=== PATIENT | female | born 1980 | race Caucasian/White ===

== ENCOUNTER → 2018-08-18 19:05 | Outpatient (CLI) | payer OTHER, SELFPAY | PROVIDERS: Visit Provider Physician Assistant | DX: N39.0 Urinary tract infection, site not specified (principal); R31.9 Hematuria, unspecified | CPT/HCPCS: 87077; 87086; 87186 ==

== ENCOUNTER → 2020-02-11 16:33 | Outpatient (CLI) | payer OTHER, SELFPAY | PROVIDERS: Visit Provider Physician Assistant | DX: N89.8 Other specified noninflammatory disorders of vagina (principal) | CPT/HCPCS: 87210 ==

== ENCOUNTER 2020-11-23 05:05 | Emergency (ER) | payer OTHER, SELFPAY ==
[2020-11-23 05:09] VITALS: BP 154/95; PULSE 87; RESP 16; TEMP 36.6; O2SAT 98; BMI 32.1
--- NOTE | 2020-11-23 05:18 | DI.US.S_ITS ---
PROCEDURE: US ABDOMEN LIMITED INDICATIONS: ?GALLBLADDER PATHOLOGY TECHNIQUE: Real-time scanning was performed of the abdominal and retroperitoneal organs, with image documentation. COMPARISON: None. FINDINGS: Liver: The liver demonstrates diffusely increased echotexture with a vague hyperechoic focus in the posterior right hepatic lobe near the johnna hepatis measuring approximately 1.9 x 1.8 x 1.0 cm. There is no internal vascularity. No definite posterior acoustic enhancement. Gallbladder: Gallbladder contains multiple mobile gallstones with largest measuring 1.3 x 1.1 cm in size. No gallbladder wall thickening. Negative sonographic Villanueva's. No pericholecystic fluid. Biliary ducts: Intrahepatic bile ducts are non-dilated. Extrahepatic bile duct caliber measures 4 mm. Normal is 6-7 mm or less in diameter, or 10 mm or less post-cholecystectomy. Pancreas: Visualized portions of the pancreas are sonographically normal. Miscellaneous: No free abdominal fluid. IMPRESSION: 1. Cholelithiasis without sonographic evidence for acute cholecystitis. 2. Nonspecific 1.9 x 1.8 x 1.0 cm hyperechoic focus near the johnna hepatis possibly representing focal fatty infiltration versus a hemangioma. Consider further characterization with multiphasic CT or MRI using liver mass protocol. No significant discrepancy with the operations research analyst radiology preliminary report. Dictated by: Rowdy Martinez M.D. on 11/23/2020 at 7:43 Approved by: Rowdy Martinez M.D. on 11/23/2020 at 7:51
--- NOTE | 2020-11-23 05:18 | ED.GENADULT ---
HPI - General Adult General Chief complaint: Abdominal Pain Stated complaint: GALL BLADDER PROBLEM Time Seen by Provider: 11/23/20 05:08 Source: patient Mode of arrival: Ambulatory Limitations: no limitations History of Present Illness HPI narrative: 40-year-old female who is here for evaluation of right upper quadrant abdominal discomfort. She states that several years ago she had an ultrasound and was told she had gallstones. She never had any issues until approximately 2 weeks ago when she started have right upper quadrant abdominal pain. She went to an outside facility. States she had labs performed and also a ?portable ultrasound ?was told that her gallbladder wall was thick and was told that if her symptoms return that she needs to return to the emergency department. She has a referral to see General surgery today. Last evening started to get right upper quadrant abdominal pain again. No fevers. No nausea vomiting. No urinary symptoms. No constipation or diarrhea. Has not tried anything for the symptoms prior to arrival. Related Data Home Medications Medication Instructions Recorded Confirmed cetirizine 10 mg capsule (Zyrtec) 10 mg PO DAILY 08/18/18 08/18/18 cranberry-B.mskrjadpn-Z-Ib phos tab PO tab 08/18/18 08/18/18 480 mg-20 mg-100 million cell tablet (Cranberry-Probiotic) phentermine 37.5 mg capsule 37.5 mg PO DAILY 08/18/18 08/18/18 Allergies Allergy/AdvReac Type Severity Reaction Status Date / Time No Known Drug Allergies Allergy Verified 08/18/18 18:57 Review of Systems Constitutional Constitutional: Denies fever(s) Cardiovascular Cardiovascular: Denies chest pain and Denies dyspnea Respiratory Respiratory: Denies dyspnea Gastrointestinal Gastrointestinal: Reports abdominal pain, Denies change in bowel habits and Denies vomiting Genitourinary Genitourinary: Denies dysuria Musculoskeletal Musculoskeletal: Reports system reviewed and no additional complaints, except as documented Integumentary/Breasts Skin/Breast: Reports system reviewed and no additional complaints, except as documented Neurologic Neurologic: Reports system reviewed and no additional complaints, except as documented Psychiatric Psychiatric: Reports system reviewed and no additional complaints, except as documented Hematologic/Lymphatic On Anticoagulants: No Patient History Medical History Swelling of right knee joint Social History (Reviewed 11/23/20 @ 05:22 by ELIZABETH Nicholson Smoking Status: Never smoker alcohol intake: current Smoking Status: Never smoker alcohol intake frequency: a few times a week Substance Use Type: does not use Exam Initial Vital Signs Initial Vital Signs: Vital Signs Temperature 97.8 F 11/23/20 05:09 Pulse Rate 87 11/23/20 05:09 Respiratory Rate 16 11/23/20 05:09 Blood Pressure 154/95 H 11/23/20 05:09 Pulse Oximetry 98 11/23/20 05:09 HENMT Head: normal to inspection and normocephalic Resp Effort & Inspection: normal respiratory effort Auscultation: clear to auscultation bilaterally Cardio Rate: regular rate Rhythm: regular rhythm GI Inspection: normal to inspection Palpation: soft and tender (Mildly tender right upper quadrant) Skin General: no rashes or lesions noted Neuro General: patient alert, patient awake and moves all extremities Extrem General: normal to inspection and capillary refill normal Psych Appearance: grossly normal and well kempt Course Orders Ordered: ED Orders 11/23/20 05:09 Complete Blood Count AUTO DIFF Stat Comprehensive Metabolic Panel Stat Lipase Stat 11/23/20 05:18 US abdomen limited Stat Vital Signs Vital signs: Vital Signs - 8 hr 11/23/20 05:09 Temperature 97.8 F Pulse Rate 87 Respiratory Rate 16 Blood Pressure 154/95 H Pulse Oximetry 98 Medical Decision Making Lab Data Lab results reviewed: Yes I reviewed the patient's lab results. Result diagrams: 11/23/20 05:20 11/23/20 05:20 Labs: Lab Results 11/23/20 11/23/20 Range/Units 05:20 05:20 WBC 10.0 (4.5-11.0) X10^3/uL RBC 4.74 (4.0-5.2) X10^6/uL Hgb 13.7 (12.0-16.0) g/dL Hct 41.5 (36-46) % MCV 87.6 (80-100) fL MCH 28.9 (26-34) PG MCHC 33.1 (30-36) % RDW 13.4 (11.6-14.8) % Plt Count 260 (150-400) X10^3/uL Neut % (Auto) 68.5 (50-75) % Lymph % (Auto) 21.9 L (25-40) % [place] % (Auto) 7.4 (3-14) % Eos % (Auto) 1.5 L (2-4) % Baso % (Auto) 0.7 (0-2) % Neut # (Auto) 6800 (4660-5464) /uL Lymph # (Auto) 2200 (6092-6599) /uL [place] # (Auto) 700 (0-900) /uL Eos # (Auto) 100 (0-450) /uL Baso # (Auto) 100 (0-100) /uL Sodium 138 (137-145) mmol/L Potassium 3.9 (3.4-5.1) mmol/L Chloride 105 (98-107) mmol/L Carbon Dioxide 26 (22-32) mmol/L BUN 12 (7-17) mg/dL Creatinine 0.62 (0.52-1.04) mg/dL Estimated GFR > 60.0 (>60) mL/min BUN/Creatinine Ratio 19.4 (6-22) Glucose 114 H (70-100) mg/dL Calcium 9.2 (8.4-10.2) mg/dL Total Bilirubin 0.4 (0.2-1.3) mg/dL AST 38 H (14-36) IU/L ALT 30 (<35) IU/L Alkaline Phosphatase 61 (38-126) U/L Total Protein 7.6 (6.3-8.2) g/dL Albumin 4.5 (3.5-5.0) g/dL Globulin 3.1 (1.7-4.1) g/dL Albumin/Globulin Ratio 1.5 (1.0-2.8) Lipase 168 (23-300) U/L Point of Care Testing Test Results Negative Urine Dip Bedside Urine Glucose Negative Bedside Urine Bilirubin - Negative Bedside Urine Ketone - Negative Urine Specific [place] 1.025 Bedside Urine Occult Blood - Negative Bedside Urine pH 6 Bedside Urine Protein - Negative Bedside Urine Urobilinogen - Negative Bedside Urine Nitrite - Negative Bedside Urine Leukocytes - Negative Esterase Point of care testing: Point of Care Testing Test Results Negative Urine Dip Bedside Urine Glucose Negative Bedside Urine Bilirubin - Negative Bedside Urine Ketone - Negative Urine Specific [place] 1.025 Bedside Urine Occult Blood - Negative Bedside Urine pH 6 Bedside Urine Protein - Negative Bedside Urine Urobilinogen - Negative Bedside Urine Nitrite - Negative Bedside Urine Leukocytes - Negative Esterase [facility] Narrative Medical decision making narrative: Patient had minimal abdominal pain with no Villanueva sign. Her LFTs lipase were unremarkable. Ultrasound does show cholelithiasis without signs of cholecystitis. She has a follow-up with General surgery today at a outside facility. Informed her that she should keep this appointment to discuss having her gallbladder removed as a elective procedure. She was given return precautions and follow-up instructions. She expressed understanding and agreement. Discharge Plan Departure Patient Disposition: Home Clinical Impression: Cholelithiasis Instructions: DI for Gallstones Activity Restrictions/Additional Instructions: I recommend that you keep your appointment today with the general surgeons to discuss having her gallbladder removed. I recommend that you eat a low-fat/low oil diet as this may decrease the chance of you having more discomfort in the future. Return to the emergency department for any new or worsening symptoms Prescriptions: No Action phentermine 37.5 mg capsule 37.5 mg PO DAILY RF: 0 Zyrtec 10 mg capsule 10 mg PO DAILY RF: 0 Cranberry-Probiotic 480 mg-20 mg- 100million cell tablet PO RF: 0 Referrals: Miscellaneous,Doctor, [Primary Care Provider] -
[2020-11-23 05:26] LABS: Add Manual Diff / Slide Review NO; Basophils Absolute Auto 100 /uL (0-100); Basophils Percent Auto 0.7 % (0-2); Eosinophils Absolute Auto 100 /uL (0-450); Eosinophils Percent Auto 1.5 % (2-4); Hematocrit 41.5 % (36-46); Hemoglobin 13.7 g/dL (12.0-16.0); Lymphocytes Absolute Auto 2200 /uL (1100-4500); Lymphocytes Percent Auto 21.9 % (25-40); Mean Corpuscular HGB Conc 33.1 % (30-36); Mean Corpuscular Hemoglobin 28.9 PG (26-34); Mean Corpuscular Volume 87.6 fL (80-100); Monocytes Absolute Auto 700 /uL (0-900); Monocytes Percent Auto 7.4 % (3-14); Neutrophils Absolute Auto 6800 /uL (1500-7000); Neutrophils Percent Auto 68.5 % (50-75); Platelet Count 260 X10^3/uL (150-400); Red Blood Cell Count 4.74 X10^6/uL (4.0-5.2); Red Cell Distribution Width 13.4 % (11.6-14.8)
[2020-11-23 05:34] LABS: Alanine Aminotransferase 30 IU/L (<35); Albumin 4.5 g/dL (3.5-5.0); Albumin Globulin Ratio 1.5 (1.0-2.8); Alkaline Phosphatase 61 U/L (38-126); Aspartate Aminotransferase 38 IU/L (14-36); BUN Creatinine Ratio 19.4 (6-22); Bilirubin Total 0.4 mg/dL (0.2-1.3); Blood Urea Nitrogen 12 mg/dL (7-17); Calcium 9.2 mg/dL (8.4-10.2); Carbon Dioxide 26 mmol/L (22-32); Chloride 105 mmol/L (98-107); Estimated Glomerular Filt Rate > 60.0 mL/min (>60); Globulin 3.1 g/dL (1.7-4.1); Glucose 114 mg/dL (70-100); HEMOLYSIS < 15 (0-50); Lipase 168 U/L (23-300); Potassium 3.9 mmol/L (3.4-5.1); Sodium 138 mmol/L (137-145); Total Protein 7.6 g/dL (6.3-8.2)
[2020-11-23 07:00] VITALS: BP 135/85; PULSE 71; RESP 16; O2SAT 97
== END 2020-11-23 07:02 | disposition home or self-care (01) ==
PROVIDERS: Emergency Provider Emergency Medicine
DX: K80.20 Calculus of gallbladder without cholecystitis without obstruction (principal)
CPT/HCPCS: 36415; 76705; 80053; 81003; 81025; 83690; 85025; 99284

== ENCOUNTER → 2021-05-24 14:44 | Outpatient (CLI) | payer OTHER, SELFPAY ==
[2021-05-24 15:38] LABS: Add Manual Diff / Slide Review NO; Basophils Absolute Auto 0 /uL (0-100); Basophils Percent Auto 0.6 % (0-2); Eosinophils Absolute Auto 100 /uL (0-450); Eosinophils Percent Auto 1.7 % (2-4); Hematocrit 37.1 % (36-46); Hemoglobin 12.6 g/dL (12.0-16.0); Lymphocytes Absolute Auto 2000 /uL (1100-4500); Lymphocytes Percent Auto 22.9 % (25-40); Mean Corpuscular HGB Conc 33.8 % (30-36); Mean Corpuscular Hemoglobin 29.2 PG (26-34); Mean Corpuscular Volume 86.4 fL (80-100); Monocytes Absolute Auto 600 /uL (0-900); Monocytes Percent Auto 7.3 % (3-14); Neutrophils Absolute Auto 5800 /uL (1500-7000); Neutrophils Percent Auto 67.5 % (50-75); Platelet Count 347 X10^3/uL (150-400); Red Blood Cell Count 4.29 X10^6/uL (4.0-5.2); Red Cell Distribution Width 13.5 % (11.6-14.8); White Blood Cell Count 8.6 X10^3/uL (4.5-11.0)
[2021-05-24 17:25] LABS: Rubella Antibody IgG 3.6 IU/mL (>15)
[2021-05-24 17:26] LABS: TSH w/ Reflex to FT4 1.99 uIU/mL (0.47-4.68)
[2021-05-25 12:13] LABS: Rubeola Measles IgG 22.1 AU/mL (Immune >16.4); Varicella IgG Antibody 378 index (Immune >165)
[2021-05-26 13:23] LABS: Mumps Virus IgG Antibody 9.1 AU/mL (Immune >10.9)
== END ==
PROVIDERS: Referring Provider Obstetrics & Gynecology; Visit Provider Obstetrics & Gynecology
DX: Z31.69 Encounter for other general counseling and advice on procreation (principal)
CPT/HCPCS: 36415; 84443; 85025; 86735; 86762; 86765; 86787

== ENCOUNTER 2021-07-16 21:39 | Emergency (ER) | payer OTHER, SELFPAY ==
[2021-07-16 21:48] VITALS: BP 125/73; PULSE 89; RESP 15; TEMP 36.6; O2SAT 99; BMI 32.1
--- NOTE | 2021-07-16 22:40 | ED.LOWEXIN ---
HPI - Extremity Injury (Lower) General Chief Complaint: Extremity Injury, Lower Stated Complaint: RIGHT KNEE BLEEDIND SURGERY WED Time Seen by Provider: 07/16/21 22:10 Source: patient Mode of arrival: Ambulatory History of Present Illness HPI Narrative: 41-year-old female who underwent a right knee surgery 2 days ago. Has a drain in place. States that she noticed that the Addison bandage around her knee was starting to become saturated with blood. Because of this she came in for evaluation. Related Data Home Medications Medication Instructions Recorded Confirmed cetirizine 10 mg capsule (Zyrtec) 10 mg PO DAILY 08/18/18 05/24/21 cranberry-B.hwmhysnlq-J-Lo phos tab PO tab 08/18/18 05/24/21 480 mg-20 mg-100 million cell tablet (Cranberry-Probiotic) Allergies Allergy/AdvReac Type Severity Reaction Status Date / Time No Known Drug Allergies Allergy Verified 05/24/21 14:07 Review of Systems Musculoskeletal Comments: Postoperative right knee pain Integumentary/Breasts Comments: Bleeding from the right knee Hematologic/Lymphatic On Anticoagulants: No Patient History Medical History Allergies (~1989) Chicken pox (~1984) Chronic back pain (~1998) Frequent UTI (~2001) Migraines (~2004) Swelling of right knee joint Surgical History Anesthesia History of cholecystectomy (~2020) History of mandibular surgery (~1995) History of tonsillectomy (~1998) Family History Mother Diabetes mellitus Grandfather Cancer Grandfather Cancer Social History Smoking Status: Never smoker alcohol intake: current Smoking Status: Never smoker alcohol intake frequency: a few times a week Substance Use Type: does not use Exam Initial Vital Signs Initial Vital Signs: Vital Signs Temperature 98 F 07/16/21 21:48 Pulse Rate 89 07/16/21 21:48 Respiratory Rate 15 07/16/21 21:48 Blood Pressure 125/73 07/16/21 21:48 Pulse Oximetry 99 07/16/21 21:48 Const General: cooperative, healthy appearing and comfortable Skin Other: The 2 incisions on the anterior inferior portion of the knee appear well. The drain coming from the superior lateral portion of the knee skin appears well Neuro General: patient alert and patient awake Extrem Other: Mild swelling of the right knee consistent with her surgery Course Vital Signs Vital signs: Vital Signs - 8 hr 07/16/21 21:48 07/16/21 22:49 Temperature 98 F Pulse Rate 89 80 Respiratory Rate 15 18 Blood Pressure 125/73 121/75 Pulse Oximetry 99 98 MDM - Extremity Injury (Lower) MDM Narrative Medical decision making narrative: I did remove the surgical dressings in the wound appears well. She does have a drain in place. There does not appear to be any active bleeding from any of the sites. No signs of infection. I did strip in the drain tubing and begin to drain once again. Patient was observed for period of time without any more active bleeding from the site. Clean dressings were replaced over the area she was instructed to continue the postoperative instructions given her by the orthopedic surgeon. No indication for radiologic studies. She was given return precautions. She expressed understanding and agreement. Discharge Plan Departure Patient Disposition: Home Clinical Impression: Post-op bleeding Activity Restrictions/Additional Instructions: I do recommend that you follow all of the postoperative instructions given to you by the orthopedic surgeon. Keep all of your scheduled medical appointments. Contact your primary doctor for a follow-up. Return to the emergency department for any new or worsening symptoms. Prescriptions: No Action Zyrtec 10 mg capsule 10 mg PO DAILY 0RF Cranberry-Probiotic 480 mg-20 mg- 100million cell tablet PO 0RF
--- NOTE | 2021-07-16 22:48 | PC.NURSE ---
pt recently had surger right knee is wrapped without any blood noted on knee at this time
[2021-07-16 22:49] VITALS: BP 121/75; PULSE 80; RESP 18; O2SAT 98
== END 2021-07-16 22:50 | disposition home or self-care (01) ==
PROVIDERS: Emergency Provider Emergency Medicine
DX: M96.831 Postprocedural hemorrhage of a musculoskeletal structure following other procedure (principal)
CPT/HCPCS: 99281

== ENCOUNTER 2021-12-15 14:44 | Inpatient (IN) | payer OTHER, SELFPAY ==
[2021-12-15] VITALS (10 sets, daily range): BP systolic 146–173; BP diastolic 76–92; PULSE 54–78; RESP 18–27; TEMP 36.9–37.1; O2SAT 98–100; BMI 32.1; BMI 31.6
--- NOTE | 2021-12-15 15:44 | DI.CT.S_ITS ---
PROCEDURE: CT KIDNEY URETER BLADDER (KUB) INDICATIONS: RLQ/groin pain with blood in urine TECHNIQUE: Axial sections were acquired from the lung bases to the pubic symphysis. Coronal and sagittal reformats were performed. For radiation dose reduction, the following was used: automated exposure control, adjustment of mA and/or kV according to patient size. COMPARISON: US, US ABDOMEN LIMITED, 11/23/2020, 6:11. FINDINGS: Image quality: Excellent. Lung bases: Unremarkable. Small hiatal hernia. Heart: No significant findings. URINARY: Right Kidney: No stones or hydronephrosis. Right Ureter: No hydroureter. Left Kidney: No stones or hydronephrosis. Left Ureter: No hydroureter. Bladder: Normal wall thickness. No stones. ABDOMEN: Liver: Unremarkable. Gallbladder: Surgically removed. Biliary ducts: Unremarkable. Pancreas: Pancreas is normal in morphology. There is no pancreatic duct dilation. Stranding is seen in the area of pancreatic head. There is a small amount of free fluid in the lesser sac. Spleen: Unremarkable. Adrenal Glands: Unremarkable. Stomach and Bowel: Stomach, small bowel loops, and colon are normal in caliber. There is mild diffuse colonic wall thickening involving cecum, ascending colon, transverse colon and descending, consistent with diffuse colitis. Terminal ileum also appears mildly thickened. Appendix appears normal. Peritoneum: There is a small amount of free fluid in the right pericolic gutter. No free air. Ventral Wall: No hernia. Abdominal Nodes: No enlarged retroperitoneal lymph nodes. Mildly prominent mesenteric lymph nodes are seen in the right lower quadrant. Vessels: Aorta and inferior vena cava are normal in size. PELVIS: Pelvic Organs: There is a 3.4 x 4.5 x 4.0 cm mass adjacent to the left anterior wall of the uterus, most likely a pedunculated subserosal fibroid. No pathological free-fluid in the cul-de-sac. Pelvic Nodes: Unremarkable. Miscellaneous: No inguinal hernias are seen. Bones: Unremarkable. IMPRESSION: 1. No renal stones or hydronephrosis. 2. There is inflammatory stranding around the pancreatic head and the 3rd portion of duodenum area. Differential diagnoses are pancreatitis versus duodenitis. Recommend clinical correlation. 3. There is mild diffuse colonic wall thickening involving the cecum, ascending, transverse and descending colon consistent with colitis. Mild thickening is also noted in terminal ileum. Crohn's disease versus infection. 4. Mildly prominent mesenteric lymph nodes in the right side of abdomen, most likely reactive. 5. Small amount of free fluid is present in the lesser sac and the right pericolic gutter. No free air. 6. Suspect a 3.4 x 4.5 x 4.0 cm pedunculated subserosal fibroid. A differential diagnosis is a left ovarian or paraovarian mass. Recommend nonurgent pelvic ultrasound for follow-up evaluation. The preliminary result was discussed Dr. Hensley Dictated by: Ya Tariq M.D. on 12/15/2021 at 16:09 Approved by: Ya Tariq M.D. on 12/15/2021 at 16:28
[2021-12-15 15:46] LABS: Ictotest Urine Negative (Negative)
[2021-12-15] MEDS: ONDANSETRON 4 MG/2 ML INJ IV (15:48)
[2021-12-15] MEDS: SODIUM CHLORIDE 0.9% 1,000 ML 1000 ML IV (15:48)
[2021-12-15 15:57] LABS: Add Manual Diff / Slide Review NO; Basophils Absolute Auto 0 /uL (0-100); Basophils Percent Auto 0.3 % (0-2); Eosinophils Absolute Auto 0 /uL (0-450); Eosinophils Percent Auto 0.1 % (2-4); Hematocrit 40.4 % (36-46); Hemoglobin 13.6 g/dL (12.0-16.0); Lymphocytes Absolute Auto 800 /uL (1100-4500); Lymphocytes Percent Auto 5.9 % (25-40); Mean Corpuscular HGB Conc 33.8 % (30-36); Mean Corpuscular Hemoglobin 28.4 PG (26-34); Mean Corpuscular Volume 84.1 fL (80-100); Monocytes Absolute Auto 600 /uL (0-900); Monocytes Percent Auto 4.5 % (3-14); Neutrophils Absolute Auto 12700 /uL (1500-7000); Neutrophils Percent Auto 89.2 % (50-75); Platelet Count 340 X10^3/uL (150-400); Red Blood Cell Count 4.81 X10^6/uL (4.0-5.2); Red Cell Distribution Width 13.9 % (11.6-14.8); White Blood Cell Count 14.2 X10^3/uL (4.5-11.0)
[2021-12-15 15:59] LABS: Bacteria Urine Many (>30); Culture Indicated Urine Specimen Cultured; RBC Urine 0-1/HPF (0-5/HPF); Squamous Epithelial Cell Urine 1-5 /HPF (0-5/HPF); WBC Urine 1-5/HPF (0-5/HPF)
[2021-12-15 16:00] LABS: Mucus Urine 1+ (Negative)
[2021-12-15 16:03] LABS: Alanine Aminotransferase 40 IU/L (<35); Albumin 4.6 g/dL (3.5-5.0); Albumin Globulin Ratio 1.4 (1.0-2.8); Alkaline Phosphatase 93 U/L (38-126); Aspartate Aminotransferase 45 IU/L (14-36); BUN Creatinine Ratio 20.3 (6-22); Bilirubin Total 0.6 mg/dL (0.2-1.3); Blood Urea Nitrogen 12 mg/dL (7-17); Calcium 9.1 mg/dL (8.4-10.2); Carbon Dioxide 26 mmol/L (22-32); Chloride 103 mmol/L (98-107); Estimated Glomerular Filt Rate > 60 mL/min (>60); Globulin 3.3 g/dL (1.7-4.1); Glucose 150 mg/dL (70-100); HEMOLYSIS < 15 (0-50); Potassium 3.9 mmol/L (3.4-5.1); Sodium 138 mmol/L (137-145); Total Protein 7.9 g/dL (6.3-8.2)
[2021-12-15 17:51] LABS: Lipase 5197 U/L (23-300)
--- NOTE | 2021-12-15 18:53 | ED_ITS ---
HPI - Abdominal Pain General Chief Complaint: Abdominal Pain Stated Complaint: ABD. PAIN Time Seen by Provider: 12/15/21 18:27 Source: patient Mode of arrival: Ambulatory History of Present Illness HPI narrative: Patient here with . Complaints of epigastric abdominal pain radiating to her back that started today. Three episodes of nonbloody emesis. Nonbilious. Patient has history of cholecystectomy. Patient admits drinking 1 bottle of wine every other day. Patient had EGD and colonoscopy 2 Mondays ago at [facility]. This was for the purpose of biopsy regarding her arthritis. No urinary complaints. No seizures. No altered mental status. Related Data Home Medications Medication Instructions Recorded Confirmed cetirizine 10 mg capsule (Zyrtec) 10 mg PO DAILY 08/18/18 12/15/21 pantoprazole 40 mg tablet,delayed 40 mg PO DAILY 12/15/21 12/15/21 release Allergies Allergy/AdvReac Type Severity Reaction Status Date / Time No Known Drug Allergies Allergy Verified 12/15/21 15:06 Review of Systems Review of Systems Narrative: GENERAL: Denies chills, fatigue, malaise, fever, sweats. HEENT: Denies sinus pain, ear pain, sore throat RESPIRATORY: Denies dyspnea, cough CARDIOVASCULAR: Denies chest pain, palpitations GASTROINTESTINAL: Positive nausea, vomiting, abdominal pain : Denies dysuria, frequency, hematuria MUSCULOSKELETAL: denies muscle or bony pain SKIN: Denies rash, skin lesions NEUROLOGIC: Denies weakness, numbness ROS Unobtainable: All systems reviewed & are unremarkable except as noted in HPI and below Patient History Medical History Allergies (~1989) Chicken pox (~1984) Chronic back pain (~1998) Frequent UTI (~2001) Migraines (~2004) Swelling of right knee joint Surgical History Anesthesia History of cholecystectomy (~2020) History of mandibular surgery (~1995) History of tonsillectomy (~1998) Family History Mother Diabetes mellitus Grandfather Cancer Grandfather Cancer Social History household members: significant other and friend(s) Smoking Status: Never smoker alcohol intake: current Smoking Status: Never smoker alcohol intake frequency: a few times a week Substance Use Type: does not use Exam Narrative Exam Narrative: GENERAL: in no distress, not toxic not dyspneic HEAD: Normocephalic. EYES: Pupils equal round No scleral icterus. ENT: Mucous membranes moist. NECK: Trachea midline. CARDIOVASCULAR: Regular rate and rhythm without murmurs RESPIRATORY: Clear to auscultation. Breath sounds equal bilaterally. No wheezes, rales, or rhonchi. GASTROINTESTINAL: Abdomen soft, no peritoneal signs, diffuse tenderness but prominently epigastric. Bowel sounds are present. EXTREMITIES: No gross deformities. NEURO: AOx4. SKIN: Warm and dry PSYCH: Not anxious, is cooperative Initial Vital Signs Initial Vital Signs: Vital Signs Temperature 98.8 F 12/15/21 15:02 Pulse Rate 69 12/15/21 15:02 Respiratory Rate 18 12/15/21 15:02 Blood Pressure 173/76 H 12/15/21 15:02 Pulse Oximetry 100 12/15/21 15:02 Oxygen Delivery Method 12/15/21 15:02 Course Course Course Narrative: No new issues during course of stay Decision to Admit Date: 12/15/21 Decision to Admit time: 18:57 Orders Ordered: ED Orders 12/15/21 15:31 Ictotest Urine Stat 12/15/21 15:40 Amylase Urgent Complete Blood Count AUTO DIFF Stat Comprehensive Metabolic Panel Stat Lactate Dehydrogenase Urgent Lipase Stat Prothrombin Time INR Urgent 12/15/21 15:44 CT kidney ureter bladder (KUB) Stat 12/15/21 19:51 Consult to Dietitian, Adult Routine 12/15/21 19:54 COVID19 -Nasal RAPID/Pre-Proc Stat 12/15/21 19:56 Education, smoking cessation ONGOING 12/16/21 05:00 Basic Metabolic Panel Routine Complete Blood Count AUTO DIFF Routine Lipid Panel Routine Acetaminophen (Acetaminophen 325 Mg Tablet) 650 mg PO Q6HR PRN PRN Reason: Fever/Mild Pain (1-3) Last Admin: 12/15/21 23:44 Dose: 650 mg Documented By: CN Enoxaparin Sodium (Enoxaparin 40 Mg/0.4 Ml Syringe) 40 mg SUBCUT DAILY LIZ Folic Acid (Folic Acid 1 Mg Tablet) 1 mg PO DAILY LIZ Hydromorphone HCl (Hydromorphone 1 Mg Inj) 1 mg IV Q3H PRN PRN Reason: Pain, Moderate (4-6) Lactated Ringer's (Lactated Ringers) 1,000 mls @ 150 mls/hr IV CONT LIZ Last Admin: 12/15/21 23:37 Dose: 150 mls/hr Documented By: CN Multivitamins (Multivitamin 1 Tablet) 1 tab PO DAILY LIZ Ondansetron HCl (Ondansetron 4 Mg/2 Ml Inj) 4 mg IV Q4HR [facility] Last Admin: 12/15/21 21:46 Dose: Not Given Documented By: CN Pantoprazole Sodium (Pantoprazole Dr 20 Mg Tablet) 20 mg PO 0600 LIZ Thiamine HCl (Thiamine 100 Mg Tablet) 100 mg PO DAILY [facility] Stop: 12/19/21 09:01 Tramadol HCl (Tramadol 50 Mg Tablet) 50 mg PO Q4H PRN PRN Reason: Pain, Moderate (4-6) Last Admin: 12/15/21 21:47 Dose: 50 mg Documented By: CN Discontinued Medications Al Hydrox/Mg Hydrox/Simethicone 20 ml/ Lidocaine HCl 15 ml 0 ml PO NOW ONE Stop: 12/15/21 20:08 Last Admin: 12/15/21 23:36 Dose: Not Given Documented By: EVON Sodium Chloride (Normal Saline 0.9%) 1,000 mls @ 1,000 mls/hr IV BOLUS ONE Stop: 12/15/21 16:44 Last Infusion: 12/15/21 18:45 Dose: 0 mls/hr Documented By: Admin: 12/15/21 15:48 Dose: 1,000 mls/hr Documented By: AMU Morphine Sulfate (Morphine 4 Mg/Ml Inj) 4 mg IV NOW ONE Stop: 12/15/21 18:53 Last Admin: 12/15/21 19:54 Dose: 4 mg Documented By: AP Ondansetron HCl (Ondansetron 4 Mg/2 Ml Inj) 4 mg IV NOW ONE Stop: 12/15/21 15:46 Last Admin: 12/15/21 15:48 Dose: 4 mg Documented By: AMU Reevaluation(s) Reevaluation #1: Reviewed results with patient. And . Agree for admit. Pain controlled at this time. Time: 18:57 Consultations Consultation #1: s/w hospitalist, Brit Ruiz, will admit Time: 19:48 Vital Signs Vital signs: Vital Signs - 8 hr 12/15/21 16:49 12/15/21 16:51 12/15/21 16:51 Pulse Rate 54 L 60 Respiratory Rate 20 Blood Pressure 151/76 H Pulse Oximetry 100 12/15/21 17:00 12/15/21 17:30 12/15/21 18:00 Pulse Rate 57 L 59 L 58 L Respiratory Rate 23 25 H 24 Blood Pressure Pulse Oximetry 100 100 100 12/15/21 18:30 12/15/21 19:00 12/15/21 19:30 Pulse Rate 67 74 75 Respiratory Rate 22 27 H 23 Blood Pressure Pulse Oximetry 99 99 98 MDM - Abdominal Pain Differential Diagnosis Differential diagnosis: Likely abdominal pain, acute appendicitis, diverticulitis, pancreatitis and small bowel obstruction Lab Data Result diagrams: 12/15/21 15:40 12/15/21 15:40 Labs: Lab Results 12/15/21 12/15/21 12/15/21 Range/Units 15:20 15:21 15:31 WBC (4.5-11.0) X10^3/uL RBC (4.0-5.2) X10^6/uL Hgb (12.0-16.0) g/dL Hct (36-46) % MCV (80-100) fL MCH (26-34) PG MCHC (30-36) % RDW (11.6-14.8) % Plt Count (150-400) X10^3/uL Neut % (Auto) (50-75) % Lymph % (Auto) (25-40) % [place] % (Auto) (3-14) % Eos % (Auto) (2-4) % Baso % (Auto) (0-2) % Neut # (Auto) (3472-9079) /uL Lymph # (Auto) (0730-5454) /uL [place] # (Auto) (0-900) /uL Eos # (Auto) (0-450) /uL Baso # (Auto) (0-100) /uL PT (10.1-12.7) SECONDS INR (0.9-1.3) Sodium (137-145) mmol/L Potassium (3.4-5.1) mmol/L Chloride (98-107) mmol/L Carbon Dioxide (22-32) mmol/L BUN (7-17) mg/dL Creatinine (0.52-1.04) mg/dL Estimated GFR (>60) mL/min BUN/Creatinine Ratio (6-22) Glucose (70-100) mg/dL Hemoglobin A1c (4.0-6.0) % Calcium (8.4-10.2) mg/dL Total Bilirubin (0.2-1.3) mg/dL AST (14-36) IU/L ALT (<35) IU/L Alkaline Phosphatase (38-126) U/L Lactate Dehydrogenase (313-618) U/L NT-Pro-B Natriuret Pep (<125) pg/mL Total Protein (6.3-8.2) g/dL Albumin (3.5-5.0) g/dL Globulin (1.7-4.1) g/dL Albumin/Globulin Ratio (1.0-2.8) Amylase (30-110) U/L Lipase (23-300) U/L Ur Bilirubin Confirm Negative (Negative) Urine RBC 0-1/hpf (0-5/HPF) Urine WBC 1-5/hpf (0-5/HPF) Ur Squamous Epith Cells 1-5 /hpf (0-5/HPF) Urine Bacteria Many (>30) H (None) Urine Mucus 1+ H (Negative) Ur Culture Indicated? Specimen cultured Ethyl Alcohol < 10 ( - 10) mg/dL SARS-CoV-2 (PCR) (Negative) 12/15/21 12/15/21 12/15/21 Range/Units 15:40 15:40 15:40 WBC 14.2 H (4.5-11.0) X10^3/uL RBC 4.81 (4.0-5.2) X10^6/uL Hgb 13.6 (12.0-16.0) g/dL Hct 40.4 (36-46) % MCV 84.1 (80-100) fL MCH 28.4 (26-34) PG MCHC 33.8 (30-36) % RDW 13.9 (11.6-14.8) % Plt Count 340 (150-400) X10^3/uL Neut % (Auto) 89.2 H (50-75) % Lymph % (Auto) 5.9 L (25-40) % [place] % (Auto) 4.5 (3-14) % Eos % (Auto) 0.1 L (2-4) % Baso % (Auto) 0.3 (0-2) % Neut # (Auto) 66394 H (2480-4709) /uL Lymph # (Auto) 800 L (3907-5337) /uL [place] # (Auto) 600 (0-900) /uL Eos # (Auto) 0 (0-450) /uL Baso # (Auto) 0 (0-100) /uL PT (10.1-12.7) SECONDS INR (0.9-1.3) Sodium 138 (137-145) mmol/L Potassium 3.9 (3.4-5.1) mmol/L Chloride 103 (98-107) mmol/L Carbon Dioxide 26 (22-32) mmol/L BUN 12 (7-17) mg/dL Creatinine 0.59 (0.52-1.04) mg/dL Estimated GFR > 60 (>60) mL/min BUN/Creatinine Ratio 20.3 (6-22) Glucose 150 H (70-100) mg/dL Hemoglobin A1c (4.0-6.0) % Calcium 9.1 (8.4-10.2) mg/dL Total Bilirubin 0.6 (0.2-1.3) mg/dL AST 45 H (14-36) IU/L ALT 40 H (<35) IU/L Alkaline Phosphatase 93 (38-126) U/L Lactate Dehydrogenase 677 H (313-618) U/L NT-Pro-B Natriuret Pep (<125) pg/mL Total Protein 7.9 (6.3-8.2) g/dL Albumin 4.6 (3.5-5.0) g/dL Globulin 3.3 (1.7-4.1) g/dL Albumin/Globulin Ratio 1.4 (1.0-2.8) Amylase 545 H (30-110) U/L Lipase 5197 H (23-300) U/L Ur Bilirubin Confirm (Negative) Urine RBC (0-5/HPF) Urine WBC (0-5/HPF) Ur Squamous Epith Cells (0-5/HPF) Urine Bacteria (None) Urine Mucus (Negative) Ur Culture Indicated? Ethyl Alcohol ( - 10) mg/dL SARS-CoV-2 (PCR) (Negative) 12/15/21 12/15/21 12/15/21 Range/Units 15:40 15:40 15:50 WBC (4.5-11.0) X10^3/uL RBC (4.0-5.2) X10^6/uL Hgb (12.0-16.0) g/dL Hct (36-46) % MCV (80-100) fL MCH (26-34) PG MCHC (30-36) % RDW (11.6-14.8) % Plt Count (150-400) X10^3/uL Neut % (Auto) (50-75) % Lymph % (Auto) (25-40) % [place] % (Auto) (3-14) % Eos % (Auto) (2-4) % Baso % (Auto) (0-2) % Neut # (Auto) (6128-9880) /uL Lymph # (Auto) (6850-0692) /uL [place] # (Auto) (0-900) /uL Eos # (Auto) (0-450) /uL Baso # (Auto) (0-100) /uL PT 12.3 (10.1-12.7) SECONDS INR 1.1 (0.9-1.3) Sodium (137-145) mmol/L Potassium (3.4-5.1) mmol/L Chloride (98-107) mmol/L Carbon Dioxide (22-32) mmol/L BUN (7-17) mg/dL Creatinine (0.52-1.04) mg/dL Estimated GFR (>60) mL/min BUN/Creatinine Ratio (6-22) Glucose (70-100) mg/dL Hemoglobin A1c 5.3 (4.0-6.0) % Calcium (8.4-10.2) mg/dL Total Bilirubin (0.2-1.3) mg/dL AST (14-36) IU/L ALT (<35) IU/L Alkaline Phosphatase (38-126) U/L Lactate Dehydrogenase (313-618) U/L NT-Pro-B Natriuret Pep 27 (<125) pg/mL Total Protein (6.3-8.2) g/dL Albumin (3.5-5.0) g/dL Globulin (1.7-4.1) g/dL Albumin/Globulin Ratio (1.0-2.8) Amylase (30-110) U/L Lipase (23-300) U/L Ur Bilirubin Confirm (Negative) Urine RBC (0-5/HPF) Urine WBC (0-5/HPF) Ur Squamous Epith Cells (0-5/HPF) Urine Bacteria (None) Urine Mucus (Negative) Ur Culture Indicated? Ethyl Alcohol ( - 10) mg/dL SARS-CoV-2 (PCR) (Negative) 12/15/21 Range/Units 19:54 WBC (4.5-11.0) X10^3/uL RBC (4.0-5.2) X10^6/uL Hgb (12.0-16.0) g/dL Hct (36-46) % MCV (80-100) fL MCH (26-34) PG MCHC (30-36) % RDW (11.6-14.8) % Plt Count (150-400) X10^3/uL Neut % (Auto) (50-75) % Lymph % (Auto) (25-40) % [place] % (Auto) (3-14) % Eos % (Auto) (2-4) % Baso % (Auto) (0-2) % Neut # (Auto) (1667-4303) /uL Lymph # (Auto) (6010-6886) /uL [place] # (Auto) (0-900) /uL Eos # (Auto) (0-450) /uL Baso # (Auto) (0-100) /uL PT (10.1-12.7) SECONDS INR (0.9-1.3) Sodium (137-145) mmol/L Potassium (3.4-5.1) mmol/L Chloride (98-107) mmol/L Carbon Dioxide (22-32) mmol/L BUN (7-17) mg/dL Creatinine (0.52-1.04) mg/dL Estimated GFR (>60) mL/min BUN/Creatinine Ratio (6-22) Glucose (70-100) mg/dL Hemoglobin A1c (4.0-6.0) % Calcium (8.4-10.2) mg/dL Total Bilirubin (0.2-1.3) mg/dL AST (14-36) IU/L ALT (<35) IU/L Alkaline Phosphatase (38-126) U/L Lactate Dehydrogenase (313-618) U/L NT-Pro-B Natriuret Pep (<125) pg/mL Total Protein (6.3-8.2) g/dL Albumin (3.5-5.0) g/dL Globulin (1.7-4.1) g/dL Albumin/Globulin Ratio (1.0-2.8) Amylase (30-110) U/L Lipase (23-300) U/L Ur Bilirubin Confirm (Negative) Urine RBC (0-5/HPF) Urine WBC (0-5/HPF) Ur Squamous Epith Cells (0-5/HPF) Urine Bacteria (None) Urine Mucus (Negative) Ur Culture Indicated? Ethyl Alcohol ( - 10) mg/dL SARS-CoV-2 (PCR) Negative (Negative) Point of care testing: Point of Care Testing Test Results Negative Urine Dip Bedside Urine Glucose Negative Bedside Urine Bilirubin + 1 Bedside Urine Ketone +/- 5 Urine Specific [place] 1.030 Bedside Urine Occult Blood +++ Bedside Urine pH 6 Bedside Urine Protein + 30 Bedside Urine Urobilinogen - Negative Bedside Urine Nitrite - Negative Bedside Urine Leukocytes - Negative Esterase Imaging Data CT scan - abdomen/pelvis: Radiologist's Impression: [place] [address] CT Scan Report Signed Patient: Gail Corcoran MR#: [id number] : 1980 Acct:[id number] Age/Sex: 41 / F Date of Service: 12/15/21 Loc: ED Accession Number: [id number] ?? Procedure: CT kidney ureter bladder (KUB) Ordering Provider: Marisela Hensley D.O. PROCEDURE:? CT KIDNEY URETER BLADDER (KUB) ? INDICATIONS:? RLQ/groin pain with blood in urine ? TECHNIQUE:? Axial sections were acquired from the lung bases to the pubic symphysis.? Coronal and sagittal reformats were performed.? For radiation dose reduction, the following was used: ?automated exposure control, adjustment of mA and/or kV according to patient size.? ? COMPARISON:? US, US ABDOMEN LIMITED, 11/23/2020, 6:11. ? FINDINGS:? Image quality:? Excellent.? ? Lung bases:? Unremarkable.? Small hiatal hernia.? ? Heart:? No significant findings. ? URINARY: Right Kidney: ? No stones or hydronephrosis.? Right Ureter:? No hydroureter.? ? Left Kidney: ? No stones or hydronephrosis. Left Ureter:? No hydroureter.? ? Bladder:? Normal wall thickness. No stones. ? ? ? ABDOMEN: Liver:? Unremarkable.? ? Gallbladder:? Surgically removed.? ? Biliary ducts:? Unremarkable.? ? Pancreas:? Pancreas is normal in morphology.? There is no pancreatic duct dilation.? Stranding is seen in the area of pancreatic head. ? There is a small amount of free fluid in the lesser sac.? Spleen:? Unremarkable.? ? Adrenal Glands:? Unremarkable.? ? ? Stomach and Bowel:? Stomach, small bowel loops, and colon are normal in caliber.? There is mild diffuse colonic wall thickening involving cecum, ascending colon, tr ansverse colon and descending, consistent with diffuse colitis.? Terminal ileum also appears mildly thickened.? Appendix appears normal. Peritoneum:? There is a small amount of free fluid in the right pericolic gutter.? No free air.? ? Ventral Wall: ? No hernia.? Abdominal Nodes:? No enlarged retroperitoneal lymph nodes.? Mildly prominent mesenteric lymph nodes are seen in the right lower quadrant. Vessels:? Aorta and inferior vena cava are normal in size.? ? PELVIS: Pelvic Organs:? There is a 3.4 x 4.5 x 4.0 cm mass adjacent to the left anterior wall of the uterus, most likely a pedunculated subserosal fibroid.? No pathological free-fluid in the cul-de-sac.? ? Pelvic Nodes: Unremarkable. Miscellaneous: No inguinal hernias are seen. ? ? ? Bones:? Unremarkable. ? IMPRESSION:? ? 1. No renal stones or hydronephrosis. 2. There is inflammatory stranding around the pancreatic head and the 3rd portion of duodenum area.? Differential diagnoses are pancreatitis versus duodenitis.? Recommend clinical correlation. 3. There is mild diffuse colonic wall thickening involving the cecum, ascending, transverse and descending colon consistent with colitis.? Mild thickening is also noted in terminal ileum.? Crohn's disease versus infection. 4. Mildly prominent mesenteric lymph nodes in the right side of abdomen, most likely reactive. 5. Small amount of free fluid is present in the lesser sac and the right pericolic gutter.? No free air. 6.? Suspect a 3.4 x 4.5 x 4.0? cm pedunculated subserosal fibroid.? A differential diagnosis is a left ovarian or paraovarian mass.? Recommend nonurgent pelvic ultrasound for follow-up evaluation.? ? The preliminary result was discussed Dr. Hensley ? ? ? Dictated by: Ya Tariq M.D. on 12/15/2021 at 16:09 ? ? Approved by: Ya Tariq M.D. on 12/15/2021 at 16:28 ? MDM Narrative Medical decision making narrative: Appropriate for admission. No signs of alcohol withdrawal. Appropriate for pain control and IV fluids. Patient and agree for admit. Discharge Plan Departure Patient Disposition: Admitted as Observation Clinical Impression: Pancreatitis Admit Date/Time: 12/15/21 20:00 Admit Provider: Brit Ruiz
[2021-12-15 19:05] LABS: Ethanol (ETOH) < 10 mg/dL
[2021-12-15] MEDS: MORPHINE 4 MG/ML INJ IV (19:54)
[2021-12-15 20:17] LABS: INR 1.1 (0.9-1.3); Prothrombin Time 12.3 SECONDS (10.1-12.7)
[2021-12-15 20:21] LABS: Amylase 545 U/L (30-110); Lactate Dehydrogenase 677 U/L (313-618)
[2021-12-15 20:24] LABS: Hemoglobin A1C% w Est Avg Glu 5.3 % (4.0-6.0)
[2021-12-15 20:30] LABS: NT-proBNP (BNP-Adult 18+) 27 pg/mL (<125)
[2021-12-15 20:51] LABS: COVID19 -Nasal RAPID Negative (Negative)
[2021-12-15] MEDS: TRAMADOL 50 MG TABLET PO (21:47)
[2021-12-15] MEDS: LACTATED RINGERS 1,000 ML 150 ML IV (23:37)
[2021-12-15] MEDS: ACETAMINOPHEN 325 MG TABLET 650 MG PO (23:44)
[2021-12-16] VITALS (9 sets, daily range): BP systolic 129–155; BP diastolic 77–88; PULSE 85–103; RESP 17–18; TEMP 36.7–37.4; O2SAT 95–100
--- NOTE | 2021-12-16 00:18 | P.HP_ITS ---
History of Present Illness History of Present Illness Date Patient Seen: 12/15/21 Time Patient Seen: 20:00 Chief complaint: ABD. PAIN Narrative: Gail Corcoran is a 41-year-old female with a medical history cholecystectomy, erosive reflux esophagitis, mild erosive gastritis, rectal polyps (found on EGD/COLON), GERD, and alcohol abuse who presented to the ED complaining diffuse epigastric abdominal pain radiating to her back, worsens with eating or movement, describes it as sharp dull achy throbbing tearing pressure squeezing type pain, that started today was 8/10 but is now 6/10 after morphine. Patient reports that she drinks approximately a bottle of wine every other day x 10 years.? Three episodes of nonbloody emesis, Nonbilious, denies hematuria, notes that her stools are chronically omar colored, denies chest pain, shortness of breath, fever, body aches, chills, upper respiratory symptoms, urinary symptoms, altered mental status, seizures, falls, recent illness, injury, or trauma. Patient had EGD and colonoscopy at [facility] that the patient reports was not related to this issue or GI concerns but for the purpose of biopsy regarding her arthritis.? Patient's spouse is at bedside to endorse history. Patient has no other dominant medical history, was prescribed only Protonix following her EGD/colonoscopy. They also found a large rectal polyp and patient is in the process of being referred to [facility] for resection. Patient is resting comfortably in bed is in no distress, tolerates physical exam with minimal discomfort. Upon admit patient is afebrile temp 98.8?, elevated blood pressure without the diagnosis of hypertension BP 173/76, 151/76, HR 60, R 20, O2 saturation 100% on room air. Patient has only a minimally elevated white count 14.2 with 80 small left shift neutrophils 12,700. Rest of her hematology and renal labs are within normal limits with the exception of a glucose of 150, lipase 5197, AST 45, ALT 40, urine had many bacteria and sent for culture. Patient's alcohol level was negative. Patient's abdomen pelvis CT demonstrated no renal stones or hydronephrosis. There is inflammatory stranding around the pancreatic head and the 3rd portion of duodenum area and mild diffuse colonic wall thickening involving the cecum, ascending, transverse and descending colon consistent with colitis, mild thickening in terminal ileum.?Mildly prominent mesenteric lymph nodes in the right side of abdomen, most likely reactive, and a small amount of free fluid is present in the lesser sac and the right pericolic gutter, but no free air. and there is a suspected 3.4 x 4.5 x 4.0? cm pedunculated subserosal fibroid.??nonurgent pelvic ultrasound recommended. Requested EGD/Colon results from [facility] 12/01/21- they reported computer issues and unable to supply them at this time. Will attempt 2nd request from coordinator on the floor. Was able to briefly put eyes on EGD/COLON report down in the ED on Dr. Cm phone-which noted no Barretts esophagus, no blood, LA grade D distal erosive reflux esophagitis, stomach mild erosive gastritis and referral to [facility] for resection of large rectal polyp believed to be non malignant. Patient admitted for mild acute alcoholic pancreatitis with elevated blood pressure without the diagnosis of hypertension, and gastritis due to alcohol without hemorrhage. ? Patient History Medical History (Updated 12/16/21 @ 00:51 by ESMER Truong-) Alcohol abuse Allergies (~1989) Chicken pox (~1984) Chronic back pain (~1998) Frequent UTI (~2001) Migraines (~2004) Swelling of right knee joint Surgical History Anesthesia History of cholecystectomy (~2020) History of mandibular surgery (~1995) History of tonsillectomy (~1998) Family & Social History Family History Mother Diabetes mellitus Grandfather Cancer Grandfather Cancer Social History: household members significant other,friend(s) Prior Living Arrangements House Safety & Behavioral: Feels Safe in Current Yes Environment Tobacco & Substance use: Smoking Status Never smoker alcohol intake current alcohol intake frequency a few times a week Substance Use Type does not use Meds Home Medications and Allergies Home Medications Medication Instructions Recorded Confirmed Type cetirizine 10 mg capsule (Zyrtec) 10 mg PO DAILY 08/18/18 12/15/21 History pantoprazole 40 mg tablet,delayed 40 mg PO DAILY 12/15/21 12/15/21 History release Allergies Allergy/AdvReac Type Severity Reaction Status Date / Time No Known Drug Allergies Allergy Verified 12/15/21 15:06 Review of Systems Review of Systems Narrative: All 12 point systems reviewed with the patient and are negative except otherwise documented. Exam Vital Signs (past 8 hours): - 12/15/21 16:49 12/15/21 16:51 12/15/21 16:51 Temperature Pulse Rate 54 L 60 Respiratory Rate 20 Blood Pressure 151/76 H Pulse Oximetry 100 Oxygen Flow Rate 12/15/21 17:00 12/15/21 17:30 12/15/21 18:00 Temperature Pulse Rate 57 L 59 L 58 L Respiratory Rate 23 25 H 24 Blood Pressure Pulse Oximetry 100 100 100 Oxygen Flow Rate 12/15/21 18:30 12/15/21 19:00 12/15/21 19:30 Temperature Pulse Rate 67 74 75 Respiratory Rate 22 27 H 23 Blood Pressure Pulse Oximetry 99 99 98 Oxygen Flow Rate 12/15/21 21:30 Temperature 98.5 F Pulse Rate 78 Respiratory Rate 18 Blood Pressure 146/92 H Pulse Oximetry 100 Oxygen Flow Rate 0 Oxygen Delivery Method Room Air Oxygen Flow Rate 0 Narrative Exam Narrative: General: Patient is a well-developed, well-nourished female in mild discomfort, but in no distress at this time. HEENT: Normocephalic, atraumatic, extraocular muscles intact, no scleral icterus oral pharynx is clear and mucous membranes are moist. Neck is supple and symmetric, trachea is midline, no adenopathy, no thyroid enlargement, nontender, no masses palpated. Negative for JVD Chest: Normal AP diameter and contour without kyphoscoliosis, no nasal flaring, retractions, or tachypneic labored breathing. Lungs: Auscultation of all lung saenz are clear without adventitious sounds, wheezes, rhonchi, or rales. Cardio: S1 & S2 with regular rate and rhythm without murmur, rubs, or gallops, no carotid bruit, no cardiac pulsations present. Abdomen: Soft mild diffuse tenderness, greatest in the epigastric, without distension negative for organomegaly, or masses. Bowel sounds are normal active present in all 4 quadrants without guarding or rebound, no CVA tenderness. Musculoskeletal: Muscle strength and tone are equal within normal limits, no deformity, crepitus, effusions, cyanosis, clubbing or edema present. Full range of motion intact radial and pedal pulses are normal. Skin: Warm dry and intact without rashes, ulcerations or petechiae. No icterus, negative for [place] Sign, Wilson sign, panniculitis, xanthomas, or parotitis Neuro: Alert and orientated x3, strength is +5/5 in all extremities, sensation to touch intact, no gross deficits noted of cranial nerves. Psych: Patient has a well-kept appearance, appropriate affect, mental status attitude thought context and judgment are appropriate for age. Objective Labs Result Diagrams: 12/15/21 15:40 12/15/21 15:40 Labs: Laboratory Results - last 24 hr 12/15/21 12/15/21 12/15/21 15:20 15:21 15:31 WBC RBC Hgb Hct MCV MCH MCHC RDW Plt Count Neut % (Auto) Lymph % (Auto) Sherman % (Auto) Eos % (Auto) Baso % (Auto) Neut # (Auto) Lymph # (Auto) Sherman # (Auto) Eos # (Auto) Baso # (Auto) PT INR Sodium Potassium Chloride Carbon Dioxide BUN Creatinine Estimated GFR BUN/Creatinine Ratio Glucose Hemoglobin A1c Calcium Total Bilirubin AST ALT Alkaline Phosphatase Lactate Dehydrogenase NT-Pro-B Natriuret Pep Total Protein Albumin Globulin Albumin/Globulin Ratio Amylase Lipase Ur Bilirubin Confirm Negative Urine RBC 0-1/hpf Urine WBC 1-5/hpf Ur Squamous Epith Cells 1-5 /hpf Urine Bacteria Many (>30) H Urine Mucus 1+ H Ur Culture Indicated? Specimen cultured Ethyl Alcohol < 10 SARS-CoV-2 (PCR) 12/15/21 12/15/21 12/15/21 15:40 15:40 15:40 WBC 14.2 H RBC 4.81 Hgb 13.6 Hct 40.4 MCV 84.1 MCH 28.4 MCHC 33.8 RDW 13.9 Plt Count 340 Neut % (Auto) 89.2 H Lymph % (Auto) 5.9 L Sherman % (Auto) 4.5 Eos % (Auto) 0.1 L Baso % (Auto) 0.3 Neut # (Auto) 98182 H Lymph # (Auto) 800 L Sherman # (Auto) 600 Eos # (Auto) 0 Baso # (Auto) 0 PT INR Sodium 138 Potassium 3.9 Chloride 103 Carbon Dioxide 26 BUN 12 Creatinine 0.59 Estimated GFR > 60 BUN/Creatinine Ratio 20.3 Glucose 150 H Hemoglobin A1c Calcium 9.1 Total Bilirubin 0.6 AST 45 H ALT 40 H Alkaline Phosphatase 93 Lactate Dehydrogenase 677 H NT-Pro-B Natriuret Pep Total Protein 7.9 Albumin 4.6 Globulin 3.3 Albumin/Globulin Ratio 1.4 Amylase 545 H Lipase 5197 H Ur Bilirubin Confirm Urine RBC Urine WBC Ur Squamous Epith Cells Urine Bacteria Urine Mucus Ur Culture Indicated? Ethyl Alcohol SARS-CoV-2 (PCR) 12/15/21 12/15/21 12/15/21 15:40 15:40 15:50 WBC RBC Hgb Hct MCV MCH MCHC RDW Plt Count Neut % (Auto) Lymph % (Auto) Sherman % (Auto) Eos % (Auto) Baso % (Auto) Neut # (Auto) Lymph # (Auto) Sherman # (Auto) Eos # (Auto) Baso # (Auto) PT 12.3 INR 1.1 Sodium Potassium Chloride Carbon Dioxide BUN Creatinine Estimated GFR BUN/Creatinine Ratio Glucose Hemoglobin A1c 5.3 Calcium Total Bilirubin AST ALT Alkaline Phosphatase Lactate Dehydrogenase NT-Pro-B Natriuret Pep 27 Total Protein Albumin Globulin Albumin/Globulin Ratio Amylase Lipase Ur Bilirubin Confirm Urine RBC Urine WBC Ur Squamous Epith Cells Urine Bacteria Urine Mucus Ur Culture Indicated? Ethyl Alcohol SARS-CoV-2 (PCR) 12/15/21 19:54 WBC RBC Hgb Hct MCV MCH MCHC RDW Plt Count Neut % (Auto) Lymph % (Auto) Sherman % (Auto) Eos % (Auto) Baso % (Auto) Neut # (Auto) Lymph # (Auto) Sherman # (Auto) Eos # (Auto) Baso # (Auto) PT INR Sodium Potassium Chloride Carbon Dioxide BUN Creatinine Estimated GFR BUN/Creatinine Ratio Glucose Hemoglobin A1c Calcium Total Bilirubin AST ALT Alkaline Phosphatase Lactate Dehydrogenase NT-Pro-B Natriuret Pep Total Protein Albumin Globulin Albumin/Globulin Ratio Amylase Lipase Ur Bilirubin Confirm Urine RBC Urine WBC Ur Squamous Epith Cells Urine Bacteria Urine Mucus Ur Culture Indicated? Ethyl Alcohol SARS-CoV-2 (PCR) Negative Assessment & Plan Assessment and plan (1) Pancreatitis: Status: Acute Plan Gail Corcoran is a 41-year-old female with a medical history cholecystectomy, newly dx erosive reflux esophagitis, mild erosive gastritis, rectal polyps (found on EGD/COLON), GERD, and alcohol abuse who presented to the ED complaining diffuse epigastric abdominal pain radiating to her back, and elevated b/p. Patient admitted for mild acute alcoholic pancreatitis with elevated blood pressure without the diagnosis of hypertension, and gastritis due to alcohol without hemorrhage 1. Acute alcoholic pancreatitis, mild, in the setting alcohol abuse, chronic, present on admission -patient has absence of organ failure and local or systemic complications, with respiratory distress, tachypneic or hypoxemic. -amylase 545, lipase 5197, [place] II: 1%, CRP 1.1, LDH 677, AST 45, ALT 40, WBC 14.2, neutrophils 12,700, sodium and potassium are normal, glucose 150, ETOH <10 -Hydration LR @150cc/Hr -Pain control hydromorphone, tramadol, antiemetics Zofran -admitted under alcohol withdrawal/CIWA protocol/Sz precautions-patient education provided regarding dangers of alcohol withdrawal -Patient education regarding ETOH safe cessation -N/V has stopped my advance diet to low fat as tolerated -Lipids, A1C , Blood cultures ordered -thiamin, multivitamin, folic acid -Abdomen pelvis CT demonstrated no renal stones or hydronephrosis. There is inflammatory stranding around the pancreatic head and the 3rd portion of duodenum area and mild diffuse colonic wall thickening involving the cecum, ascending, transverse and descending colon consistent with colitis, mild thickening in terminal ileum.?Mildly prominent mesenteric lymph nodes in the right side of abdomen, most likely reactive, and a small amount of free fluid is present in the lesser sac and the right pericolic gutter, but no free air. and there is a suspected 3.4 x 4.5 x 4.0? cm pedunculated subserosal fibroid.??nonurgent pelvic ultrasound recommended. 2. Gerd, Gastritits due to alcohol without hemorrhage, newly diagnosed, acute, present on admission - Requested EGD/Colon results from [facility] 12/01/21- they reported computer issues and unable to supply them at this time. Will attempt 2nd request from coordinator on the floor. -Was able to briefly put eyes on EGD/COLON report down in the ED on Dr. Cm phone-which noted no Barretts esophagus, no blood, LA grade D distal erosive reflux esophagitis, stomach mild erosive gastritis and referral to [facility] for resection of large rectal polyp believed to be non malignant. -Continue Protonix daily -GI Cocktail PRN 3. Elevated blood pressure without the diagnosis of hypertension, acute, present on admission -likely secondary to acute alcoholic pancreatitis and chronic alcohol abuse. -Initial in ED BP 173/76, At Admit 151/76, 155/88 -Initiate Lisinopril 10 mg daily- Provide pt education - F/U with PCP within 2 weeks for HTN evaluation (pt to record 2 week random Blood pressure Log) 4. Overweight as evidence by BMI of 31.7, acute on chronic, present on admission -dietary consult placed for nutritional exercise lifestyle and weight loss recommendations. Code status:Full Surrogate decision maker: Partner Rowdy Normanfortino NIELSEN PCR:Negative DVT/VTE prophylaxis: Lovenox and SCDs Disposition: Patient admitted for observation mild alcoholic pancreatitis expected to improve quickly, expected length of stay less than 2 midnights I have utilized all available immediate resources to obtain, update, or review the patient's current medications. I confirmed that the patient's advanced care plan is present, Code status is documented and/or surrogate decision maker is listed in the patient's medical record. Time Spent With Patient Critical Care time: I spent a total of [] minutes of critical care time on this patient's care today; this time is exclusive of procedural time.
[2021-12-16] MEDS: MAG HYDROX/ALUMINUM/SIMETH SUS 20 ML, LIDOCAINE VISCOUS 2% 15 ML PO (00:42)
[2021-12-16 00:47] LABS: C-Reactive Protein Quant 1.1 mg/dL (<1.0)
[2021-12-16 05:40] LABS: Add Manual Diff / Slide Review NO; Basophils Absolute Auto 0 /uL (0-100); Basophils Percent Auto 0.4 % (0-2); Eosinophils Absolute Auto 100 /uL (0-450); Eosinophils Percent Auto 0.9 % (2-4); Hematocrit 35.2 % (36-46); Lymphocytes Absolute Auto 1200 /uL (1100-4500); Lymphocytes Percent Auto 10.6 % (25-40); Mean Corpuscular HGB Conc 34.2 % (30-36); Mean Corpuscular Hemoglobin 28.7 PG (26-34); Monocytes Absolute Auto 700 /uL (0-900); Monocytes Percent Auto 6.4 % (3-14); Neutrophils Absolute Auto 9100 /uL (1500-7000); Neutrophils Percent Auto 81.7 % (50-75); Platelet Count 267 X10^3/uL (150-400); Red Blood Cell Count 4.19 X10^6/uL (4.0-5.2); White Blood Cell Count 11.2 X10^3/uL (4.5-11.0)
[2021-12-16 05:46] LABS: BUN Creatinine Ratio 21.6 (6-22); Blood Urea Nitrogen 11 mg/dL (7-17); Calcium 7.9 mg/dL (8.4-10.2); Carbon Dioxide 25 mmol/L (22-32); Chloride 101 mmol/L (98-107); Cholesterol 201 mg/dL (140-199); Estimated Glomerular Filt Rate > 60 mL/min (>60); Glucose 100 mg/dL (70-100); HDL Cholesterol 60 mg/dL (40-60); HEMOLYSIS < 15 (0-50); LDL Cholesterol Calculated 130 mg/dL (<100); Potassium 3.4 mmol/L (3.4-5.1); Sodium 133 mmol/L (137-145); Triglycerides 54 mg/dL (35-150)
[2021-12-16] MEDS: PANTOPRAZOLE DR 20 MG TABLET PO (06:27)
[2021-12-16] MEDS: ENOXAPARIN 40 MG/0.4 ML SYRINGE SUBCUT (09:34)
[2021-12-16] MEDS: FOLIC ACID 1 MG TABLET PO (09:35)
[2021-12-16] MEDS: MULTIVITAMIN 1 TABLET 1 TAB PO (09:35)
[2021-12-16] MEDS: THIAMINE 100 MG TABLET PO (09:35)
[2021-12-16] MEDS: HYDROMORPHONE 1 MG INJ IV (09:36)
--- NOTE | 2021-12-16 11:41 | CM.DANOTE ---
DCP Assessment: Payor: [place] PCP: [facility] Pt is a 41 y.o. F who presented to the ER with complaints of abdominal pain that radiated to her back. Pt has an EGD and colonoscopy two weeks ago at [facility]. Pt did have three episodes of emesis. Pt was admitted to the floor under observation for pain control and IV fluids. DCP met with the patient this morning to discuss discharge needs. Pt laying in bed with headphones on. Pt spouse, Rowdy, at bedside. DCP introduced herself and role. Pt stated that she lives in a 1 story house with her spouse and roommate in [place]. Pt states that she still drives POV and denies any DME use. Pt states that she is independent at baseline. Pt did not discuss much information with DCP. Pt denies any resources at this time. DCP does not identify any resources at this time. Whiteboard was updated and instructed to call if any other questions or concerns arise. P: Once medically stable for discharge, pt to discharge home via spouse POV. Ana Mckeon RN/OBED Discharge Planning/Care Management Advanced directive, confirm from FAMILY Start: 12/15/21 21:58 Freq: Q24H Status: Active Protocol: Document 12/16/21 01:41 CN (Rec: 12/16/21 01:42 CN [id number]) Advance Directive, confirm on record Time 22:00 Person contacted patient Copy received No CM Discharge Assessment Start: 12/16/21 11:27 Freq: Status: Active Protocol: Document 12/16/21 11:27 MICHI (Rec: 12/16/21 11:28 AJ [id number]) Discharge Planning Assessment Assigned Director Of Employee Development Ana Mckeon RN/OBED Advance Directives? Yes Advance Directives on File No: requested History Provided By Patient Prior Living Arrangements House Household Members significant other,other Comment Roommate Type of transporation used prior to Drives own vehicle admit Independent with ADL's Yes Is patient alert and oriented? Yes Discharge Plan Home Transportation Arrangement Spouse POV Referrals Initiated None needed Whiteboard Updated in Patient Room with Yes name and ext. # of Director Of Employee Development Comment Instructed to call Review Status In Process Please Provide Date Initial DC 12/16/21 Assessment Was Performed Next Review Type Continued Stay Review
[2021-12-16] MEDS: HYDROMORPHONE 4 MG TABLET PO ×2 (15:07→20:18)
--- NOTE | 2021-12-16 16:31 | P.PN_ITS ---
Subjective Subjective Date Patient Seen: 12/16/21 Interval history: Today patient is tolerating a diet without nausea or vomiting, but continues to have diffuse abdominal pain.In talking with her she describes two different pains, and lower pain that sort of wraps around her lower abdomen and an epigastric pain that radiates to the back. She has no fever, chest pain. She has been dealing with diarrhea for a few years now. She had recent colonoscopy and EGD which was unremarkable and did not show inflammation here but her CT did. She has also been seeing rheumatology for a non-painful swelling / arthritis in her R knee. Exam Vital Signs (past 8 hours): - 12/16/21 09:00 12/16/21 11:57 12/16/21 12:22 Temperature 98.1 F Pulse Rate 88 Respiratory Rate 18 Blood Pressure 131/84 Pulse Oximetry 98 96 96 Oxygen Delivery Method Room Air Room Air Oxygen Flow Rate 0 0 12/16/21 15:00 Temperature 98.7 F Pulse Rate 94 H Respiratory Rate 18 Blood Pressure 129/79 Pulse Oximetry 97 Oxygen Delivery Method Oxygen Flow Rate 0 Oxygen Delivery Method Room Air Oxygen Flow Rate 0 Narrative Exam Narrative: General: Patient is a well-developed, well-nourished female in mild discomfort, but in no distress at this time. HEENT: Normocephalic, atraumatic, extraocular muscles intact, no scleral icterus oral pharynx is clear and mucous membranes are moist. Neck is supple and symmetric, trachea is midline Chest: Normal AP diameter and contour without kyphoscoliosis, no nasal flaring or labored breathing. Lungs: Auscultation of all lung saenz are clear without adventitious sounds, wheezes, rhonchi, or rales. Cardio: S1 & S2 with regular rate and rhythm without murmur, rubs, or gallops, no carotid bruit, no cardiac pulsations present. Abdomen: Soft mild diffuse tenderness, greatest in the epigastric, no distension Musculoskeletal: R knee effusion and swelling, no tenderness or erythema of her other joints. Skin: Warm dry and intact without rashes, ulcerations or petechiae. Neuro: Alert and orientated x3, strength is +5/5 in all extremities, sensation to touch intact, no gross deficits noted of cranial nerves. Psych: Patient has a well-kept appearance, appropriate affect, mental status attitude thought context and judgment are appropriate for age. Objective Labs Result Diagrams: 12/16/21 05:20 12/16/21 05:20 Labs: Laboratory Results - last 24 hr 12/15/21 12/15/21 12/15/21 15:20 15:40 15:40 WBC RBC Hgb Hct MCV MCH MCHC RDW Plt Count Neut % (Auto) Lymph % (Auto) Petroleum % (Auto) Eos % (Auto) Baso % (Auto) Neut # (Auto) Lymph # (Auto) Petroleum # (Auto) Eos # (Auto) Baso # (Auto) PT INR Sodium Potassium Chloride Carbon Dioxide BUN Creatinine Estimated GFR BUN/Creatinine Ratio Glucose Hemoglobin A1c Calcium Lactate Dehydrogenase 677 H C-Reactive Protein NT-Pro-B Natriuret Pep Triglycerides Cholesterol LDL Cholesterol, Calc HDL Cholesterol Amylase 545 H Lipase 5197 H Ethyl Alcohol < 10 SARS-CoV-2 (PCR) 12/15/21 12/15/21 12/15/21 15:40 15:40 15:40 WBC RBC Hgb Hct MCV MCH MCHC RDW Plt Count Neut % (Auto) Lymph % (Auto) Petroleum % (Auto) Eos % (Auto) Baso % (Auto) Neut # (Auto) Lymph # (Auto) Petroleum # (Auto) Eos # (Auto) Baso # (Auto) PT 12.3 INR 1.1 Sodium Potassium Chloride Carbon Dioxide BUN Creatinine Estimated GFR BUN/Creatinine Ratio Glucose Hemoglobin A1c Calcium Lactate Dehydrogenase C-Reactive Protein 1.1 H NT-Pro-B Natriuret Pep 27 Triglycerides Cholesterol LDL Cholesterol, Calc HDL Cholesterol Amylase Lipase Ethyl Alcohol SARS-CoV-2 (PCR) 12/15/21 12/15/21 12/16/21 15:50 19:54 03:15 WBC RBC Hgb Hct MCV MCH MCHC RDW Plt Count Neut % (Auto) Lymph % (Auto) Petroleum % (Auto) Eos % (Auto) Baso % (Auto) Neut # (Auto) Lymph # (Auto) Petroleum # (Auto) Eos # (Auto) Baso # (Auto) PT INR Sodium Potassium Chloride Carbon Dioxide BUN Creatinine Estimated GFR BUN/Creatinine Ratio Glucose Hemoglobin A1c 5.3 Cancelled Calcium Lactate Dehydrogenase C-Reactive Protein NT-Pro-B Natriuret Pep Triglycerides Cholesterol LDL Cholesterol, Calc HDL Cholesterol Amylase Lipase Ethyl Alcohol SARS-CoV-2 (PCR) Negative 08/18/22 08/18/22 05:20 05:20 WBC 11.2 H RBC 4.19 Hgb 12.0 Hct 35.2 L MCV 84.0 MCH 28.7 MCHC 34.2 RDW 14.0 Plt Count 267 Neut % (Auto) 81.7 H Lymph % (Auto) 10.6 L Petroleum % (Auto) 6.4 Eos % (Auto) 0.9 L Baso % (Auto) 0.4 Neut # (Auto) 9100 H Lymph # (Auto) 1200 Petroleum # (Auto) 700 Eos # (Auto) 100 Baso # (Auto) 0 PT INR Sodium 133 L Potassium 3.4 Chloride 101 Carbon Dioxide 25 BUN 11 Creatinine 0.51 L Estimated GFR > 60 BUN/Creatinine Ratio 21.6 Glucose 100 Hemoglobin A1c Calcium 7.9 L Lactate Dehydrogenase C-Reactive Protein NT-Pro-B Natriuret Pep Triglycerides 54 Cholesterol 201 H LDL Cholesterol, Calc 130 H HDL Cholesterol 60 Amylase Lipase Ethyl Alcohol SARS-CoV-2 (PCR) [facility] Medical History (Updated 12/16/21 @ 00:51 by ESMER Truong-) Alcohol abuse Allergies (~1989) Chicken pox (~1984) Chronic back pain (~1998) Frequent UTI (~2001) Migraines (~2004) Swelling of right knee joint Surgical History Anesthesia History of cholecystectomy (~2020) History of mandibular surgery (~1995) History of tonsillectomy (~1998) Family History Mother Diabetes mellitus Grandfather Cancer Grandfather Cancer Social History household members: significant other and other Smoking Status: Never smoker alcohol intake: current Assessment & Plan Assessment and plan (1) Pancreatitis: Status: Acute Assessment & Plan narrative: Gail Corcoran is a 41-year-old female with a medical history cholecystectomy, newly dx erosive reflux esophagitis, mild erosive gastritis, rectal polyps (found on EGD/COLON), GERD, and alcohol use who presented to the ED complaining diffuse epigastric abdominal pain radiating to her back, and elevated b/p. Patient admitted for acute alcoholic pancreatitis and possible inflammatory colitis. 1. Acute alcoholic pancreatitis, mild, in the setting alcohol abuse, chronic, present on admission -Abdomen pelvis CT demonstrated no renal stones or hydronephrosis. There is inflammatory stranding around the pancreatic head and the 3rd portion of duodenum area and mild diffuse colonic wall thickening involving the cecum, ascending, transverse and descending colon consistent with colitis, mild thickening in terminal ileum.?Mildly prominent mesenteric lymph nodes in the right side of abdomen, most likely reactive, and a small amount of free fluid is present in the lesser sac and the right pericolic gutter, but no free air. and there is a suspected 3.4 x 4.5 x 4.0? cm pedunculated subserosal fibroid.??nonu rgent pelvic ultrasound recommended. - send IGG subclasses given bowel inflammation and knee swelling. -tolerating a diet, continue pain control -unclear if pain is now pancreatitis or due to her colitis. 2. Colitis. - notable that recently she had colonoscopy without note of inflammation seen. - send GI panel to rule out infectious etiologies. - Consider repeat colonoscopy to visualize inflammation and make formal diagnosis depending on symptoms. 3. Gerd, Gastritits due to alcohol without hemorrhage, newly diagnosed, acute, present on admission EGD and colonoscopy, no Barretts esophagus, no blood, LA grade D distal erosive reflux esophagitis, stomach mild erosive gastritis and referral to [facility] for resection of large rectal polyp believed to be non malignant. -Continue Protonix daily 3. Elevated blood pressure without the diagnosis of hypertension, acute, present on admission -likely secondary to acute alcoholic pancreatitis and chronic alcohol abuse. -Initial in ED BP 173/76, At Admit 151/76, 155/88 -Initiate Lisinopril 10 mg daily- Provide pt education - F/U with PCP within 2 weeks for HTN evaluation (pt to record 2 week random Blood pressure Log) 4. Overweight as evidence by BMI of 31.7, acute on chronic, present on admission -dietary consult placed for nutritional exercise lifestyle and weight loss recommendations. Code status:Full Surrogate decision maker: Partner Rowdy Elizabeth COVID PCR:Negative DVT/VTE prophylaxis: Lovenox and SCDs Disposition: Patient admitted for observation mild alcoholic pancreatitis expected to improve quickly, expected length of stay less than 2 midnights I have utilized all available immediate resources to obtain, update, or review the patient's current medications. I confirmed that the patient's advanced care plan is present, Code status is documented and/or surrogate decision maker is listed in the patient's medical record. Time Spent With Patient Critical Care time: I spent a total of [] minutes of critical care time on this patient's care today; this time is exclusive of procedural time.
[2021-12-16] MEDS: ONDANSETRON 4 MG/2 ML INJ IV (17:39)
[2021-12-17] VITALS (9 sets, daily range): BP systolic 107–133; BP diastolic 68–82; PULSE 99–121; RESP 16–20; TEMP 36.6–37.5; O2SAT 94–98
[2021-12-17] MEDS: HYDROMORPHONE 4 MG TABLET PO ×2 (06:27→17:50)
[2021-12-17] MEDS: PANTOPRAZOLE DR 20 MG TABLET PO (06:28)
[2021-12-17] MEDS: ENOXAPARIN 40 MG/0.4 ML SYRINGE SUBCUT (09:42)
[2021-12-17] MEDS: lisinopriL 10 MG TABLET PO (09:42)
[2021-12-17] MEDS: FOLIC ACID 1 MG TABLET PO (09:42)
[2021-12-17] MEDS: MULTIVITAMIN 1 TABLET 1 TAB PO (09:42)
[2021-12-17] MEDS: THIAMINE 100 MG TABLET PO (09:42)
--- NOTE | 2021-12-17 15:02 | P.PN_ITS ---
Subjective Subjective Date Patient Seen: 12/17/21 Interval history: She continues to have significant abdominal pain today. She tolerated some of her food, but vomited dinner last night and still feels poorly. She endorsed some blood in the bathroom overnight but thinks it is menstrual. Exam Vital Signs (past 8 hours): - 12/17/21 08:00 12/17/21 07:55 12/17/21 07:55 Temperature 98.9 F Pulse Rate 106 H Respiratory Rate 16 Blood Pressure 133/78 Pulse Oximetry 95 98 Oxygen Delivery Method Room Air Room Air Oxygen Flow Rate 0 12/17/21 12:00 Temperature 98.3 F Pulse Rate 108 H Respiratory Rate 18 Blood Pressure 127/82 Pulse Oximetry 94 Oxygen Delivery Method Oxygen Flow Rate 0 Oxygen Delivery Method Room Air Oxygen Flow Rate 0 Narrative Exam Narrative: General: Patient is a well-developed, well-nourished female in mild discomfort, but in no distress at this time. HEENT: Normocephalic, atraumatic, extraocular muscles intact, no scleral icterus oral pharynx is clear and mucous membranes are moist. Neck is supple and symmetric, trachea is midline Chest: Normal AP diameter and contour without kyphoscoliosis, no nasal flaring or labored breathing. Lungs: Auscultation of all lung saenz are clear without adventitious sounds, wheezes, rhonchi, or rales. Cardio: S1 & S2 with regular rate and rhythm without murmur, rubs, or gallops, no carotid bruit, no cardiac pulsations present. Abdomen: Soft mild diffuse tenderness, greatest in the epigastric, no distension Musculoskeletal: R knee effusion and swelling, no tenderness or erythema of her other joints. Skin: Warm dry and intact without rashes, ulcerations or petechiae. Neuro: Alert and orientated x3, strength is +5/5 in all extremities, sensation to touch intact, no gross deficits noted of cranial nerves. Psych: Patient has a well-kept appearance, appropriate affect, mental status attitude thought context and judgment are appropriate for age. Objective Labs Result Diagrams: 12/16/21 05:20 12/16/21 05:20 [facility] Medical History (Updated 12/17/21 @ 13:35 by Mara Hyatt RN) Abnormal colonoscopy Alcohol abuse Allergies (~1989) Chicken pox (~1984) Chronic back pain (~1998) Frequent UTI (~2001) Gastritis GERD (gastroesophageal reflux disease) Migraines (~2004) Rectal polyp Swelling of right knee joint Surgical History (Updated 12/17/21 @ 13:35 by Mara Hyatt RN) Anesthesia History of cholecystectomy (~2020) History of esophagogastroduodenoscopy (EGD) History of mandibular surgery (~1995) History of tonsillectomy (~1998) Family History Mother Diabetes mellitus Grandfather Cancer Grandfather Cancer Social History household members: significant other and other Smoking Status: Never smoker alcohol intake: current Assessment & Plan Assessment and plan (1) Pancreatitis: Status: Acute Assessment & Plan narrative: Gail Corcoran is a 41-year-old female with a medical history cholecystectomy, newly dx erosive reflux esophagitis, mild erosive gastritis, rectal polyps (found on EGD/COLON), GERD, and alcohol use who presented to the ED complaining diffuse epigastric abdominal pain radiating to her back, and elevated b/p. Patient admitted for acute alcoholic pancreatitis and possible inflammatory co litis. 1. Acute alcoholic pancreatitis, mild, in the setting alcohol abuse, chronic, present on admission -Abdomen pelvis CT demonstrated no renal stones or hydronephrosis. There is inflammatory stranding around the pancreatic head and the 3rd portion of duodenum area and mild diffuse colonic wall thickening involving the cecum, ascending, transverse and descending colon consistent with colitis, mild thickening in terminal ileum.?Mildly prominent mesenteric lymph nodes in the right side of abdomen, most likely reactive, and a small amount of free fluid is present in the lesser sac and the right pericolic gutter, but no free air. and there is a suspected 3.4 x 4.5 x 4.0? cm pedunculated subserosal fibroid.??nonurgent pelvic ultrasound recommended. - sent IGG subclasses given bowel inflammation and knee swelling. -tolerating a diet, continue pain control -unclear if pain is now pancreatitis or due to her colitis. 2. Colitis. - notable that recently she had colonoscopy without note of inflammation seen. - send GI panel to rule out infectious etiologies, no episodes of diarrhea here. Watch for bloody symptoms as crohn's or UC is high on her differential. - Consider repeat colonoscopy to visualize inflammation and make formal diagnosis depending on symptoms and GI panel. 3. Gerd, Gastritits due to alcohol without hemorrhage, newly diagnosed, acute, present on admission EGD and colonoscopy, no Barretts esophagus, no blood, LA grade D distal erosive reflux esophagitis, stomach mild erosive gastritis and referral to [facility] for resection of large rectal polyp believed to be non malignant. -Continue Protonix daily 4. Overweight as evidence by BMI of 31.7, acute on chronic, present on admission -dietary consult placed for nutritional exercise lifestyle and weight loss recommendations. 5. HTN - possibly due to pain, normotensive today with 10 mg of lisinopril. Continue to monitor as symptoms change. Code status:Full Surrogate decision maker: Partner Rowdy NIELSEN PCR:Negative DVT/VTE prophylaxis: Lovenox and SCDs Disposition: Anticipate discharge home, suspect in 1-3 more days depending on her symptoms. I have utilized all available immediate resources to obtain, update, or review the patient's current medications. I confirmed that the patient's advanced care plan is present, Code status is documented and/or surrogate decision maker is listed in the patient's medical record. Time Spent With Patient Critical Care time: I spent a total of [] minutes of critical care time on this patient's care today; this time is exclusive of procedural time. Quality MIPS - Admit I confirm the patient?s Advance Care Plan is present, Code status is documented, Surrogate decision maker is in patient?s record [If Yes, STOP here]: Yes
--- NOTE | 2021-12-17 17:03 | DIET.CONS ---
Dietary Consultation Note Admission Date: 12/15/2021 20:00 Assessment: 41 y/o F admitted with epigastric abdominal pain and elevated b/p. Admitted for acute alcoholic pancreatitis and possible inflammatory colitis. RD consulted for ETOH pancreatitis/ BMI 32.1. Gail continues to feel unwell. Poor PO. Emesis last night after dinner. Today she reports eating apple sauce, a bite of melon, and half a protein shake. Endorses poor appetite and does not want any fruit with seeds. No other specific preferences for food. No significant wt changes Staff notes indicate she consumes one bottle of wine q other day. Currently taking Thiamine, Folate, and MVI. Nutrition counseling in OP setting rec for elevated BMI. Ht: 154.94 cm Wt: 77.1 kg BMI: 31.6 Last BM: 12/15/21 (12/15/21 20:27) MNA: 12 Dionicio Score: 20 Diet: 12/16/21 Breakfast Low/restricted Fat Diet Diet Modifications: May eat as long as no further N/V-if V NPO May Advance Diet as Tolerated: Yes Dietary Fat allowed: 25 grams (pancreatitis) Nutrition Percent Meal Consumed 15 12/17/21 12:45 Percent Meal Consumed 10 12/17/21 09:31 Percent Meal Consumed 0% 12/16/21 18:00 Percent Meal Consumed 75% 12/16/21 14:00 Percent Meal Consumed 75% 12/16/21 09:01 Labs: RBC 4.19 X10^6/uL (4.0-5.2) 12/16/21 05:20 Hgb 12.0 g/dL (12.0-16.0) 12/16/21 05:20 Hct 35.2 % (36-46) L 12/16/21 05:20 Creatinine 0.51 mg/dL (0.52-1.04) L 12/16/21 05:20 Hemoglobin A1c Cancelled 12/16/21 03:15 NT-Pro-B Natriuret Pep 27 pg/mL (<125) 12/15/21 15:40 Nutrition Diagnosis: Inadequate energy intake r/t loss of appetite with alcoholic pancreatitis aeb pt report and poor PO of <50% today Interventions: 1. Low fat protein shake BID. RD communicated fruit preferences with kitchen. 2. ETOH MNT at home: potential for B vitamin Monitoring/Evaluations: PO and pro shake tolerance Electronically Signed by: Marta Ordonez 12/17/21 17:03 Clinical Dietitian [address] [id number]
[2021-12-17] MEDS: SODIUM CHLORIDE 0.9% FLUSH 10 ML IV (21:19)
--- NOTE | 2021-12-17 22:26 | PC.NURSE ---
Patient is alert and oriented. Breath sounds diminished but CTA with RA sat of 95%. HRR but tachy at 121 bpm. Denies nausea. Does complain of 2-3/10 right upper abdominal pain radiating to back and bilateral lower abdominal pain; declines pain med. Has had poor appetite. BT present and abdomen is soft but tender. Denies dysuria, frequency or urgency with urination. Is able to turn herself in bed. SBA provided when out of bed for safety. Bilateral calf SCD's applied. Fall risk score is moderate. CIWA score was 1. Seizure pads on bed.
[2021-12-18] VITALS (8 sets, daily range): BP systolic 114–132; BP diastolic 71–86; PULSE 93–110; RESP 14–20; TEMP 36.6–37.4; O2SAT 93–97
[2021-12-18] MEDS: PANTOPRAZOLE DR 20 MG TABLET PO (05:51)
[2021-12-18 06:27] LABS: Lipase 216 U/L (23-300)
[2021-12-18] MEDS: THIAMINE 100 MG TABLET PO (08:24)
[2021-12-18] MEDS: FOLIC ACID 1 MG TABLET PO (08:24)
[2021-12-18] MEDS: MULTIVITAMIN 1 TABLET 1 TAB PO (08:24)
[2021-12-18] MEDS: ENOXAPARIN 40 MG/0.4 ML SYRINGE SUBCUT (08:25)
[2021-12-18] MEDS: SODIUM CHLORIDE 0.9% FLUSH 10 ML IV ×2 (08:25→20:04)
[2021-12-18] MEDS: HYDROMORPHONE 2 MG TABLET PO (08:32)
--- NOTE | 2021-12-18 10:15 | DI.CT.S_ITS ---
PROCEDURE: CT ABDOMEN PELVIS W CON INDICATIONS: re-evaluate colitis, abdominal pain w/ improved lipase TECHNIQUE: After the administration of intravenous contrast, axial sections acquired from the lung bases to the pubic symphysis. Coronal and sagittal reformats were performed. For radiation dose reduction, the following was used: automated exposure control, adjustment of mA and/or kV according to patient size. COMPARISON: [facility], CT, CT KIDNEY URETER BLADDER (KUB), 12/15/2021, 16:05. FINDINGS: Lower thorax: Small right pleural effusion associated with bibasilar platelike atelectasis. Liver: Subcentimeter hypodensities in liver most consistent with cyst Biliary system: Cholecystectomy. No intra or extrahepatic bile duct dilation. Pancreas: Unremarkable without mass or inflammation evident. Spleen: Normal in size and density. Adrenals: Normal morphology and density. Reproductive system: Exophytic uterine fibroid measures 4.9 cm, stable Urinary system: Normal renal size and attenuation. No renal calculi, hydronephrosis, or solid mass present. Urinary bladder unremarkable. Gastrointestinal system: Is worsening wall thickening and adjacent inflammatory change predominantly is centered on the 3rd portion the duodenum. Colonic wall thickening has resolved. No evidence of free air or obstruction. Appendix: No findings to suggest acute appendicitis. Peritoneal spaces: No mesenteric or retroperitoneal adenopathy. No free air. Vasculature: The IVC, aorta and iliac vasculature are unremarkable. Abdominal wall: Abdominal wall intact without evidence of ventral or inguinal hernias. Subcutaneous air over the right lower quadrant consistent with recent subcutaneous injection Musculoskeletal: Normal bone mineralization. No acute fractures. IMPRESSION: 1. Duodenitis is slightly worse. There is duodenal wall thickening and perienteric inflammatory change which appears slightly worse than the prior exam. No evidence of obstruction or perforation. Pancreas and colon improved in the interval. 2. Bibasilar platelike atelectasis and small right pleural effusion is new from the prior Approved by: Daniel Guardado M.D. on 12/18/2021 at 15:46
--- NOTE | 2021-12-18 13:47 | PM.PN.1 ---
Subjective Subjective Date Patient Seen: 12/18/21 Interval history: Still with no bowel movements today. She complains still of pain, more prominent in RLQ now, that is severe whenever she moves but controlled at rest. She has been trying to take less pain medication. Her lipase was much improved this morning. Exam Vital Signs (past 8 hours): - 12/18/21 07:30 12/18/21 12:15 Temperature 99.3 F 98.3 F Pulse Rate 110 H 93 H Respiratory Rate 20 20 Blood Pressure 120/77 119/81 Pulse Oximetry 95 96 Oxygen Flow Rate 0 0 Oxygen Delivery Method Room Air Oxygen Flow Rate 0 Narrative Exam Narrative: General: Patient is a well-developed, well-nourished female in mild discomfort, but in no distress at this time. HEENT: Normocephalic, atraumatic, extraocular muscles intact, no scleral icterus oral pharynx is clear and mucous membranes are moist. Neck is supple and symmetric, trachea is midline Chest: Normal AP diameter and contour without kyphoscoliosis, no nasal flaring or labored breathing. Lungs: Auscultation of all lung saenz are clear without adventitious sounds, wheezes, rhonchi, or rales. Cardio: S1 & S2 with regular rate and rhythm without murmur, rubs, or gallops, no carotid bruit, no cardiac pulsations present. Abdomen: Soft mild diffuse tenderness, greatest in the epigastric, no distension Musculoskeletal: R knee effusion and swelling, no tenderness or erythema of her other joints. Skin: Warm dry and intact without rashes, ulcerations or petechiae. Neuro: Alert and orientated x3, strength is +5/5 in all extremities, sensation to touch intact, no gross deficits noted of cranial nerves. Psych: Patient has a well-kept appearance, appropriate affect, mental status attitude thought context and judgment are appropriate for age. Objective Labs Result Diagrams: 12/16/21 05:20 12/16/21 05:20 Labs: Laboratory Results - last 24 hr 12/18/21 06:08 Lipase 216 D [facility] Medical History (Updated 12/17/21 @ 13:35 by Mara Hyatt RN) Abnormal colonoscopy Alcohol abuse Allergies (~1989) Chicken pox (~1984) Chronic back pain (~1998) Frequent UTI (~2001) Gastritis GERD (gastroesophageal reflux disease) Migraines (~2004) Rectal polyp Swelling of right knee joint Surgical History (Updated 12/17/21 @ 13:35 by Mara Hyatt RN) Anesthesia History of cholecystectomy (~2020) History of esophagogastroduodenoscopy (EGD) History of mandibular surgery (~1995) History of tonsillectomy (~1998) Family History Mother Diabetes mellitus Grandfather Cancer Grandfather Cancer Social History household members: significant other and other Smoking Status: Never smoker alcohol intake: current Assessment & Plan Assessment and plan (1) Pancreatitis: Status: Acute Assessment & Plan narrative: Gail Corcoran is a 41-year-old female with a medical history cholecystectomy, newly dx erosive reflux esophagitis, mild erosive gastritis, rectal polyps (found on EGD/COLON), GERD, and alcohol use who presented to the ED complaining diffuse epigastric abdominal pain radiating to her back, and elevated b/p. Patient admitted for acute alcoholic pancreatitis and possible inflammatory colitis. 1. Acute alcoholic pancreatitis, mild, in the setting alcohol abuse, chronic, present on ,admission, improved -Abdomen pelvis CT demonstrated no renal stones or hydronephrosis. There is inflammatory stranding around the pancreatic head and the 3rd portion of duodenum area and mild diffuse colonic wall thickening involving the cecum, ascending, transverse and descending colon consistent with colitis, mild thickening in terminal ileum.?Mildly prominent mesenteric lymph nodes in the right side of abdomen, most likely reactive, and a small amount of free fluid is present in the lesser sac and the right pericolic gutter, but no free air. and there is a suspected 3.4 x 4.5 x 4.0? cm pedunculated subserosal fibroid.??nonurgent pelvic ultrasound recommended. - sent IGG subclasses given bowel inflammation and knee swelling. -tolerating a diet, continue pain control -repeat lipase 8/20 normal, but she still has significant pain with any movement, but suspect from colitis. 2. Colitis. - notable that recently she had colonoscopy without note of inflammation seen. - send GI panel to rule out infectious etiologies, no episodes of diarrhea here. Watch for bloody symptoms as crohn's or UC is high on her differential. - Consider repeat colonoscopy to visualize inflammation and make formal diagnosis depending on symptoms and GI panel. - repeat CT today given continued pain and improved lipase for reassessment of her colonic inflammation. 3. Gerd, Gastritits due to alcohol without hemorrhage, newly diagnosed, acute, present on admission EGD and colonoscopy, no Barretts esophagus, no blood, LA grade D distal erosive reflux esophagitis, stomach mild erosive gastritis and referral to [facility] for resection of large rectal polyp believed to be non malignant. -Continue Protonix daily 4. Overweight as evidence by BMI of 31.7, acute on chronic, present on admission -dietary consult placed for nutritional exercise lifestyle and weight loss recommendations. 5. HTN - possibly due to pain, normotensive today with 10 mg of lisinopril. Continue to monitor as symptoms change. Code status:Full Surrogate decision maker: Partner Rowdy Normanfortino NIELSEN PCR:Negative DVT/VTE prophylaxis: Lovenox and SCDs Disposition: Anticipate discharge home, suspect in 1-3 more days depending on her symptoms. I have utilized all available immediate resources to obtain, update, or review the patient's current medications. I confirmed that the patient's advanced care plan is present, Code status is documented and/or surrogate decision maker is listed in the patient's medical record. Time Spent With Patient Critical Care time: I spent a total of [] minutes of critical care time on this patient's care today; this time is exclusive of procedural time.
[2021-12-18 14:59] LABS: IgG Subclass 1 445 mg/dL (248-810); IgG Subclass 2 300 mg/dL (130-555); IgG Subclass 3 20 mg/dL (15-102); IgG Subclass 4 3 mg/dL (2-96); IgG Total 860 mg/dL (586-1602)
[2021-12-18 17:09] LABS: Campylobacter Not Detected (Not Detect)
[2021-12-18 17:10] LABS: Adenovirus F 40/41 Not Detected (Not Detect); Astrovirus Not Detected (Not Detect); Clostridium difficile toxin AB Not Detected (Not Detect); Cryptosporidium Not Detected (Not Detect); Cyclospora cayetanensis Not Detected (Not Detect); Entamoeba histolytica Not Detected (Not Detect); Enteroaggregative E.coli Not Detected (Not Detect); Enteropathogenic E.coli Detected (Not Detect); Enterotoxigenic E.coli It/st Not Detected (Not Detect); Giardia lamblia Not Detected (Not Detect); Norovirus GI/GII Not Detected (Not Detect); Plesiomonsa shigelloides Not Detected (Not Detect); Rotavirus A Not Detected (Not Detect); Salmonella Not Detected (Not Detect); Sapovirus Not Detected (Not Detect); Shiga-like toxin-prod E.coli Not Detected (Not Detect); Shigella/Enteroinvasive E.coli Not Detected (Not Detect); Vibrio Not Detected (Not Detect); Vibrio cholerae Not Detected (Not Detect); Yersinia enterocolitica Not Detected (Not Detect)
[2021-12-18] MEDS: CIPROFLOXACIN 250 MG TABLET 500 MG PO (18:46)
[2021-12-18] MEDS: HYDROMORPHONE 1 MG INJ IV (20:04)
[2021-12-19] VITALS: BP 128/80; PULSE 107; RESP 16; TEMP 37.2; O2SAT 95
[2021-12-19] MEDS: HYDROMORPHONE 2 MG TABLET PO ×2 (01:37→12:41)
[2021-12-19 03:00] VITALS: O2SAT 97
[2021-12-19] MEDS: CIPROFLOXACIN 250 MG TABLET 500 MG PO (06:02)
[2021-12-19] MEDS: PANTOPRAZOLE DR 20 MG TABLET PO (06:02)
[2021-12-19 07:30] VITALS: BP 121/81; PULSE 100; RESP 18; TEMP 36.9; O2SAT 95
[2021-12-19] MEDS: THIAMINE 100 MG TABLET PO (08:13)
[2021-12-19] MEDS: MULTIVITAMIN 1 TABLET 1 TAB PO (08:13)
[2021-12-19] MEDS: FOLIC ACID 1 MG TABLET PO (08:13)
[2021-12-19] MEDS: SODIUM CHLORIDE 0.9% FLUSH 10 ML IV (08:20)
[2021-12-19 09:04] VITALS: O2SAT 99
--- NOTE | 2021-12-19 11:00 | PM.DS.1 ---
History of Present Illness History of Present Illness Date Patient Seen: 12/19/21 Chief complaint: ABD. PAIN Narrative: Per Brit Ruiz, PACU RN-BC: Gial Corcoran is a 41-year-old female with a medical history cholecystectomy, erosive reflux esophagitis, mild erosive gastritis, rectal polyps (found on EGD/COLON), GERD, and alcohol abuse who presented to the ED complaining diffuse epigastric abdominal pain radiating to her back, worsens with eating or movement, describes it as sharp dull achy throbbing tearing pressure squeezing type pain, that started today was 8/10 but is now 6/10 after morphine. Patient reports that she drinks approximately a bottle of wine every other day x 10 years.? Three episodes of nonbloody emesis, Nonbilious, denies hematuria, notes that her stools are chronically omar colored, denies chest pain, shortness of breath, fever, body aches, chills, upper respiratory symptoms, urinary symptoms, altered mental status, seizures, falls, recent illness, injury, or trauma. Patient had EGD and colonoscopy at [facility] that the patient reports was not related to this issue or GI concerns but for the purpose of biopsy regarding her arthritis.? Patient's spouse is at bedside to endorse history. Patient has no other dominant medical history, was prescribed only Protonix following her EGD/colonoscopy. They also found a large rectal polyp and patient is in the process of being referred to [facility] for resection. Patient is resting comfortably in bed is in no distress, tolerates physical exam with minimal discomfort. Upon admit patient is afebrile temp 98.8?, elevated blood pressure without the diagnosis of hypertension BP 173/76, 151/76, HR 60, R 20, O2 saturation 100% on room air. Patient has only a minimally elevated white count 14.2 with 80 small left shift neutrophils 12,700. Rest of her hematology and renal labs are within normal limits with the exception of a glucose of 150, lipase 5197, AST 45, ALT 40, urine had many bacteria and sent for culture. Patient's alcohol level was negative. Patient's abdomen pelvis CT demonstrated no renal stones or hydronephrosis. There is inflammatory stranding around the pancreatic head and the 3rd portion of duodenum area and mild diffuse colonic wall thickening involving the cecum, ascending, transverse and descending colon consistent with colitis, mild thickening in terminal ileum.?Mildly prominent mesenteric lymph nodes in the right side of abdomen, most likely reactive, and a small amount of free fluid is present in the lesser sac and the right pericolic gutter, but no free air. and there is a suspected 3.4 x 4.5 x 4.0? cm pedunculated subserosal fibroid.??nonurgent pelvic ultrasound recommended. Requested EGD/Colon results from [facility] 12/01/21- they reported computer issues and unable to supply them at this time. Will attempt 2nd request from coordinator on the floor. Was able to briefly put eyes on EGD/COLON report down in the ED on Dr. Cm phone-which noted no Barretts esophagus, no blood, LA grade D distal erosive reflux esophagitis, stomach mild erosive gastritis and referral to [facility] for resection of large rectal polyp believed to be non malignant. Patient admitted for mild acute alcoholic pancreatitis with elevated blood pressure without the diagnosis of hypertension, and gastritis due to alcohol without hemorrhage. ? Discharge Providers Provider Date of admission: 12/15/21 20:00 Discharge Date: 12/19/21 Consults: 12/15/21 19:51 Consult to Dietitian, Adult Routine Comment: Reason For Exam: ETOH pancreatitis/BMI32.1 Discharge provider: Yann Rangel DO Summary Hospital Course Discharge Diagnosis: 1. Acute alcoholic pancreatitis, mild, in the setting alcohol abuse, chronic, present on ,admission, improved 2. Colitis with EPEC. 3.??Gerd, Gastritits due to alcohol without hemorrhage, newly diagnosed, acute, present on admission 4. Obesity, BMI of 31.7, acute on chronic, present on admission 5. HTN Hospital Course: This is a 41-year-old female who was admitted for further management of abdominal pain. Her initial CT scan field findings consistent with pancreatitis as well as a nonspecific colitis. Her lipase was elevated, and her diet was advanced quickly. She was able to tolerate small amounts of food and was slow to improve. Her abdominal pain transitioned to that more consistent with her colitis rather than pancreatitis after a couple of days. Repeat lipase was checked and was normal, and the patient continued to have significant pain so a repeat CT scan was performed. Her pancreatitis is presumed secondary to EtOH use at this time. Given colitis and arthritis, IGG subclass panel was sent but showed normal / borderline low IGG [address] on HD#2 showed resolution of her colitis but a worsening duodenitis. This could not entirely be explained. The patient had minimal diarrhea over the first few days with pain medications. She has had chronic diarrhea for the past couple of years. GI panel was finally sent, which showed EPEC on PCR testing. Given severity of her symptoms she was started on ciprofloxacin with mild improvement in symptoms and pain. She was discharged home given her improvement. She will complete another 6 days of antibiotics, she requested fluconazole for vaginal yeast infection which typically occurs when she takes cipro she says. She was also given a small amount of hydromorphone in case of continued pain. I recommend continued follow up with rheumatology, though no obvious autoimmune disease is apparent at this time. Her blood pressure was elevated on admission, and she was normotensive on low dose lisinopril over the course of her stay. Given illness with continued pain, outpatient therapy was not prescribed. Recommend continued follow up with PCP for further BP monitoring in a more stable setting as an outpatient. Time Spent with Patient Time spent: Greater than 30 minutes Exam Vital Signs (past 8 hours): - 12/19/21 07:30 12/19/21 09:04 Temperature 98.4 F Pulse Rate 100 H Respiratory Rate 18 Blood Pressure 121/81 Pulse Oximetry 95 99 Oxygen Delivery Method Room Air Oxygen Flow Rate 0 Oxygen Delivery Method Room Air Oxygen Flow Rate 0 Narrative Exam Narrative: General: Patient is a well-developed, well-nourished female in mild discomfort, but in no distress at this time. Abdomen: Soft NT, ND Musculoskeletal: R knee effusion and swelling, no tenderness or erythema of her other joints. Skin: Warm dry and intact without rashes, ulcerations or petechiae. Neuro: Alert and orientated x3, strength is +5/5 in all extremities, sensation to touch intact, no gross deficits noted of cranial nerves. Psych: Patient has a well-kept appearance, appropriate affect, mental status attitude thought context and judgment are appropriate for age. Objective Labs Result Diagrams: 12/16/21 05:20 12/16/21 05:20 Labs: Laboratory Results - last 24 hr 12/17/21 12/18/21 05:05 15:00 Stl C. cayetanensis PCR Not detected Stool Rotavirus (PCR) Not detected Stool Adenovirus (PCR) Not detected Stool Astrovirus (PCR) Not detected Stool Cryptosporidium PCR Not detected Stl E.coli Shiga Tox PCR Not detected St Sh/Enteroin Ecoli PCR Not detected Stool E coli O157 PCR Not detected Stl Enterotoxigenic E PCR Not detected Stool EPEC (PCR) Detected H Stl E. histolytica PCR Not detected Stool Giardia Lamblia PCR Not detected Stool Sapovirus (PCR) Not detected Stl P. shigelloides PCR Not detected St Y.enterocolitica PCR Not detected Stool Vibrio (PCR) Not detected Stl Vibrio cholerae PCR Not detected Stl Enteroaggr Ecoli PCR Not detected Stl Norovirus GI/GII PCR Not detected IgG Subclass 1 445 IgG Subclass 2 300 IgG Subclass 3 20 IgG Subclass 4 3 Immunoglobulin A IgG Ab 860 Campylobacter (PCR) Not detected C. difficile Tox (PCR) Not detected Salmonella (PCR) Not detected PFSH Medical History (Updated 12/17/21 @ 13:35 by Mara Hyatt RN) Abnormal colonoscopy Alcohol abuse Allergies (~1989) Chicken pox (~1984) Chronic back pain (~1998) Frequent UTI (~2001) Gastritis GERD (gastroesophageal reflux disease) Migraines (~2004) Rectal polyp Swelling of right knee joint Surgical History (Updated 12/17/21 @ 13:35 by Mara Hyatt RN) Anesthesia History of cholecystectomy (~2020) History of esophagogastroduodenoscopy (EGD) History of mandibular surgery (~1995) History of tonsillectomy (~1998) Family History Mother Diabetes mellitus Grandfather Cancer Grandfather Cancer Social History household members: significant other and other Smoking Status: Never smoker alcohol intake: current Discharge Plan Discharge Plan Patient Disposition: Home Provider Discharge Comment: You were admitted to the hospital with abdominal pain. Initially due to alcoholic pancreatitis, this improved. You also were noted to have a diffuse colitis which then moved to your small bowel on repeat imaging. GI studies showed a bacteria called EPEC which I have started an antibiotic for you given the severity of your symptoms. 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 Discharge orders & Medications Prescriptions: New ciprofloxacin HCl 500 mg tablet 500 mg PO 0700,2100 6 Days Qty: 12 0RF hydromorphone 2 mg Tablet 2 mg PO Q4HR PRN (Reason: Pain, Moderate (4-6)) 7 Days Qty: 10 0RF fluconazole 150 mg tablet 150 mg PO Q3D Qty: 2 0RF Rx Instructions: may repeat second dose 72 hrs after first dose if symptoms persist Continued Zyrtec 10 mg capsule 10 mg PO DAILY pantoprazole 40 mg tablet,delayed release (DR/EC) 40 mg PO DAILY Diet/Activity/Treatments Diet: Diet as Tolerated Activity: As tolerated Skin/Wound/Dressing Care Report to your healthcare provider any signs of infection, such as:: chills, fever and increased pain Visit Report/Discharge Packet Instructions: DI for Pancreatitis, DI for Abdominal Pain-Adult, DI for Colitis
--- NOTE | 2021-12-19 11:53 | CM.DPC ---
DCP Cont: Discussed patient during team rounds, and she may be discharged home today depending on her abdominal pain. She is independent at her baseline, and has no needs. P: Patient is discharging home today. Lori Jo RN/[employer]
--- NOTE | 2021-12-19 13:27 | PC.NURSE ---
DAY SHIFT: Pt discharged at 1325, paperwork signed and all questions answered. Pt has all personal belongings. Pt spouse here for Pt discharge teachings and will be driving Pt home. scripts sent electronically to Pt pharmacy. Medicated per JUN for right lower abd pain as per JUN.
== END 2021-12-19 13:29 | disposition home or self-care (01) | DRG 439 ==
LOC: ED 19:03 → AC 20:01
PROVIDERS: Emergency Medicine; Internal Medicine; Admitting Provider Nurse Practitioner Family; Emergency Provider Emergency Medicine; Referring Provider Emergency Medicine; Visit Provider Nurse Practitioner Family
DX: K85.20 Alcohol induced acute pancreatitis without necrosis or infection (principal); A04.0 Enteropathogenic Escherichia coli infection; K29.20 Alcoholic gastritis without bleeding; F10.10 Alcohol abuse, uncomplicated; K21.9 Gastro-esophageal reflux disease without esophagitis; I10 Essential (primary) hypertension; K52.9 Noninfective gastroenteritis and colitis, unspecified; Y90.0 Blood alcohol level of less than 20 mg/100 ml; Z20.822 Contact with and (suspected) exposure to COVID-19
CPT/HCPCS: 36415; 74176; 74177; 80048; 80053; 80061; 80320; 81003; 81015; 81025; 82150; 82784; 82787; 83036; 83615; 83690; 83880; 85025; 85610; 86140; 87040; 87086; 87507; 87635; 96374; 96375; 99284; C9803; J1170; J1650; J2270; J2405; Q9967

== ENCOUNTER → 2022-08-30 15:37 | Outpatient (CLI) | payer OTHER, SELFPAY ==
[2021-12-15 20:27] VITALS: BMI 31.6
== END ==
PROVIDERS: Referring Provider Obstetrics & Gynecology; Visit Provider Obstetrics & Gynecology
DX: Z31.69 Encounter for other general counseling and advice on procreation (principal)
CPT/HCPCS: 82397

== ENCOUNTER 2023-10-09 06:34 | Day surgery (SDC) | payer OTHER, SELFPAY ==
[2021-12-15 20:27] VITALS: BMI 31.6
[2023-10-04 14:48] VITALS: BMI 29.2
--- NOTE | 2023-10-09 | PATH_ITS ---
[facility] Accession Number: [id number] No. of containers..01 Tissue . 01 Material submitted: . endometrium - ENDOMETRIAL CURRETTINGS AND FIBROID . 01 Diagnosis: ENDOMETRIAL CURETTINGS AND FIBROID: Portions of secretory endometrium; negative for endometrioid intraepithelial neoplasia or malignancy. Some endometrial fragments demonstrate prominent vessels, suggestive of polyp, if clinical and imaging studies are concordant. Scattered fragments of smooth muscle, consistent with benign leiomyoma, in the appropriate clinical setting; negative for atypia or malignancy. [facility] 10/13/2023 1643 Local . 01 Electronically signed: . Robyn Olson MD, Pathologist NPI- [id number] . 01 Gross description: . Received in formalin with two patient identifiers and endometrial curetting and fibroid, are multiple person soft tissue fragments admixed with hemorrhagic material aggregating to 2.9 x 2.5 x 0.4 cm. Filtered and submitted entirely in A1. ([id number]) /MRV 10/10/2023 1819 Local . 01 Pathologist provided ICD-10: D25.0 . 01 CPT . 875024 Specimen Comment: A courtesy copy of this report has been sent to [phone] Performed at: [address] [facility] [address], [place], [place] [id number] MD Aries Sung MD Phone: [phone]
[2023-10-09 06:55] VITALS: BMI 28.3
[2023-10-09 07:10] VITALS: BP 126/84; PULSE 94; RESP 17; TEMP 37.3; O2SAT 100
[2023-10-09] MEDS: LACTATED RINGERS 1,000 ML 21 ML IV (07:13)
[2023-10-09] MEDS: ACETAMINOPHEN IV 1,000 MG/100 ML VIAL 400 MG IV (07:25)
--- NOTE | 2023-10-09 07:38 | P.HPOB_ITS ---
History of Present Illness History of Present Illness Narrative: Gail Corcoran is a 43 year old female G0 who presents for removal of submucosal fibroid versus polyp. Patient is receiving infertility treatment. [facility] Medical History (Updated 10/09/23 @ 07:27 by Lakisha Esteban MD) GERD (gastroesophageal reflux disease) Abnormal colonoscopy Rectal polyp Gastritis Alcohol abuse Allergies (~1989) Migraines (~2004) Chronic back pain (~1998) Chicken pox (~1984) Frequent UTI (~2001) Swelling of right knee joint Surgical History (Updated 12/17/21 @ 13:35 by Mara Hyatt RN) History of esophagogastroduodenoscopy (EGD) Anesthesia History of tonsillectomy (~1998) History of mandibular surgery (~1995) History of cholecystectomy (~2020) Family History Mother Diabetes mellitus Grandfather Cancer Grandfather Cancer Social History household members: significant other and other Smoking Status: Never smoker alcohol intake: current Meds Home Medications and Allergies Home Medications Medication Instructions Recorded Confirmed Type cetirizine 10 mg capsule (Zyrtec) 10 mg PO DAILY 08/18/18 10/09/23 History adalimumab-atto 40 mg/0.8 mL 40 mg SUBCUT Q2W 08/30/22 10/09/23 History subcutaneous syringe prenat.vits,yousif,baz-acdv-frdco 1 tab PO DAILY 08/30/22 10/09/23 History fluconazole 150 mg tablet 150 mg PO Q3D PRN yeast 10/09/23 10/09/23 History naltrexone 50 mg tablet 50 mg PO DAILY 10/09/23 10/09/23 History Allergies Allergy/AdvReac Type Severity Reaction Status Date / Time No Known Drug Allergies Allergy Verified 10/09/23 06:51 Exam Vital Signs (past 8 hours): - 10/09/23 07:10 Temperature 99.2 F Pulse Rate 94 H Respiratory Rate 17 Blood Pressure 126/84 Pulse Oximetry 100 Oxygen Delivery Method Room Air Oxygen Delivery Method Room Air Narrative Exam Narrative: HEENT: No thyromegaly, no anterior cervical or supraclavicular lymphadenopathy. Lungs:Clear to auscultation bilaterally, no wheezes. Cardiovascular: Regular rate and rhythm, no murmurs, rubs, or gallops. Abdomen: Well-healed laparoscopy scars. No hepatosplenomegaly. No masses palpable. External genitalia: Normal Vagina: Normal Cervix: Normal Bimanual exam: 7 Week size anteverted uterus. Mobile. Extremities: No edema Assessment & Plan Assessment & Plan narrative: Assessment: 43-year-old 0 with a submucosal fibroid versus a polyp seen on hysterosalpingogram Patient receiving infertility treatment Plan: D&C hysteroscopy with resection of polyp versus fibroid The risks, benefits, and alternatives to the procedure were explained to the patient. The risks including bleeding, infection, and uterine perforation. She understands these risks and agrees to proceed. A full par Q was held and consent form was signed.
--- NOTE | 2023-10-09 07:47 | PM.PREOP ---
Pre-operative Note Interval Note History & Physical reviewed/Exam performed by Physician: Yes Changes to H&P: No H&P completed within 30 days and has changed as indicated here:: 10/09/23
[2023-10-09] MEDS: CEFAZOLIN 2 GM/100 ML PREMIX 100 ML IV (07:53)
--- NOTE | 2023-10-09 08:09 | SUR.OPER ---
Lithotomy on padded OR bed, head on pillow, arms secured on padded arm boards at <90 degrees abduction. Legs secured in padded yellow fins stirrups.
--- NOTE | 2023-10-09 08:41 | PM.GYNOP.1 ---
Operative Date/Time/Diagnoses Date of procedure: 10/09/23 Time of procedure: 08:41 Pre-op diagnosis: Submucosal fibroid versus polyp Post-op diagnosis: same Procedure & Clinicians Procedure: Procedures Operation Date: 10/09/23 07:45 Actual Procedure Side Surgeon p Hysteroscopy D&C, resection of fibroid Lakisha Esteban MD Indications: 43-year-old 0 undergoing infertility treatment, found to have a submucosal fibroid versus polyp on hysterosalpingogram Surgeon: Lakisha Esteban Anesthesia Type: General (LMA) Operative Notes Findings: 7 week size anteverted uterus Fundal anterior submucosal fibroid measuring 1.8 cm Both fallopian tube ostia observed Fluid deficit 255 cc Total fluid 1834 cc Final pressure 80 mmHg Cutting time 2 minutes and 29 seconds Closure Type: not applicable Specimen(s): other (Pieces of fibroid, endometrial curettings) Estimated blood loss (mL): 10 Blood products transfused: none Procedure in detail: After informed consent was obtained, the patient was taken to the operating room where she was placed in the dorsal supine position. After adequate LMA general anesthesia was achieved, she was placed in the dorsal lithotomy position, and prepped and draped in the usual sterile fashion. A time-out was performed. A bivalve speculum was placed into the vagina and the anterior lip of the cervix was grasped with a single-tooth tenaculum. The cervical os was dilated to the # 7 Hegar dilator. The MyoSure hysteroscope passed easily into the endometrial cavity. There was a submucosal fibroid in the anterior fundus measuring 1.8 cm. Both fallopian tube ostia were observed. The hysteroscope was removed. The cervix was further dilated to the #9 Hegar dilator. Using the MyoSure XL, the anterior submucosal fibroid was excised. Minimal bleeding was noted. The instruments were removed from the uterus. The single-tooth tenaculum was removed from the anterior lip of the cervix. The bivalve speculum was removed from the vagina. Sponge, lap, and instrument counts were correct x2. The patient tolerated the procedure well, and was taken to PACU in stable condition. Complications: none Post-operative Condition: stable Disposition: PACU Plan for aftercare: Home after recovery
[2023-10-09 08:43] VITALS: BP 130/93; PULSE 101; RESP 16; TEMP 36.9; O2SAT 99
[2023-10-09 08:47] VITALS: BP 131/75; PULSE 95; RESP 16; O2SAT 99
[2023-10-09] MEDS: MEPERIDINE 50 MG/ML INJ 25 MG IV (08:50)
[2023-10-09 08:52] VITALS: BP 130/88; PULSE 96; RESP 16; O2SAT 99
== END 2023-10-09 09:30 | disposition home or self-care (01) ==
PROVIDERS: Referring Provider Obstetrics & Gynecology; Visit Provider Obstetrics & Gynecology
PROC: 0UDB8ZZ Extraction of Endometrium, Via Natural or Artificial Opening Endoscopic (ICD-10-PCS; CPT 58558; principal; 2023-10-09 07:45)
DX: D25.0 Submucous leiomyoma of uterus (principal)
CPT/HCPCS: 58561; J0136; J0690; J1100; J1885; J2175; J2250; J2405; J2704; J3010

== ENCOUNTER 2024-10-01 00:01 | Emergency (ER) | payer OTHER, SELFPAY ==
[2021-12-15 20:27] VITALS: BMI 31.6
[2024-10-01 00:29] VITALS: BP 140/86; PULSE 84; RESP 17; TEMP 36.9; O2SAT 100; BMI 26.4
[2024-10-01 01:05] LABS: Bacteria Urine Many (>30); Culture Indicated Urine Cult Not Indicated; RBC Urine 0-1/HPF (0-5/HPF); Squamous Epithelial Cell Urine 1-5 /HPF (0-5/HPF); Urine Volume 10mL (spun); WBC Urine 10-30/HPF (0-5/HPF)
[2024-10-01] MEDS: cephALEXin 250 MG CAPSULE 500 MG PO (01:27)
[2024-10-01] MEDS: PHENAZOPYRIDINE 100 MG TABLET 200 MG PO (01:28)
--- NOTE | 2024-10-01 01:48 | ED_ITS ---
HPI - General Adult General Chief complaint: Urogenital-Female Stated complaint: Back Pain, Urinary Symtoms Time Seen by Provider: 10/01/24 01:21 Source: patient Mode of arrival: Ambulatory History of Present Illness HPI narrative: 44-year-old female with history of previous urine infection, has dysuria and frequency of urination. No nausea or vomiting. No fevers or chills. Not currently on any antibiotics. In the past when she has an antibiotics for urine infections or other bacterial infections she has also developed vaginal yeast infection. Related Data Home Medications Medication Instructions Recorded Confirmed cetirizine 10 mg capsule (Zyrtec) 10 mg PO DAILY 08/18/18 10/25/23 adalimumab-atto 40 mg/0.8 mL 40 mg SUBCUT Q2W 08/30/22 10/25/23 subcutaneous syringe prenat.vits,yousif,eom-egks-yejpo 1 tab PO DAILY 08/30/22 10/25/23 fluconazole 150 mg tablet 150 mg PO Q3D PRN yeast 10/09/23 10/25/23 naltrexone 50 mg tablet 50 mg PO DAILY 10/09/23 10/25/23 Previous Rx's Medication Instructions Recorded cephalexin 500 mg capsule 500 mg PO BID 7 days #14 caps 10/01/24 fluconazole 200 mg tablet 200 mg PO DAILY #2 tabs 10/01/24 (Diflucan) phenazopyridine 200 mg tablet 200 mg PO TID PRN pain #10 tabs 10/01/24 (Pyridium) Allergies Allergy/AdvReac Type Severity Reaction Status Date / Time No Known Drug Allergies Allergy Verified 10/25/23 15:21 Patient History Medical History (Updated 10/01/24 @ 01:57 by Theodore Diaz MD) Infertility Female infertility associated with male factors GERD (gastroesophageal reflux disease) Abnormal colonoscopy Rectal polyp Gastritis Alcohol abuse Allergies (~1989) Migraines (~2004) Chronic back pain (~1998) Chicken pox (~1984) Frequent UTI (~2001) Swelling of right knee joint Surgical History (Updated 12/17/21 @ 13:35 by Mara Hyatt RN) History of esophagogastroduodenoscopy (EGD) Anesthesia History of tonsillectomy (~1998) History of mandibular surgery (~1995) History of cholecystectomy (~2020) Family History Mother Diabetes mellitus Grandfather Cancer Grandfather Cancer Social History household members: significant other and other Smoking Status: Never smoker alcohol intake: current Smoking Status: Never smoker alcohol intake frequency: a few times a week Exam Narrative Exam Narrative: GENERAL: Well-developed patient, in mild distress. HEAD: Atraumatic. Normocephalic. EYES: Pupils equal round and reactive. Extraocular motions intact. No scleral icterus. No injection or drainage. ENT: Nose without bleeding, purulent drainage. Throat without erythema, tonsillar hypertrophy or exudate. Airway patent. NECK: Trachea midline. Non tender CARDIOVASCULAR: Regular rate and rhythm without murmurs, gallops, or rubs. RESPIRATORY: Clear to auscultation. Breath sounds equal bilaterally. No wheezes, rales, or rhonchi. GASTROINTESTINAL: Abdomen soft, non-tender, nondistended. EXTREMITIES: No edema or joint tenderness. BACK: Nontender without deformity or crepitance. No flank tenderness. NEURO: AOx3. Motor functions grossly nonfocal SKIN: No rash or erythema of visible areas Initial Vital Signs Initial Vital Signs: Vital Signs Temperature 98.4 F 10/01/24 00:29 Pulse Rate 84 10/01/24 00:29 Respiratory Rate 17 10/01/24 00:29 Blood Pressure 140/86 10/01/24 00:29 Pulse Oximetry 100 10/01/24 00:29 Oxygen Delivery Method Room Air 10/01/24 00:29 Course Orders Ordered: ED Orders 10/01/24 00:40 Urine Culture Stat Urine Microscopic Stat Discontinued Medications Cephalexin HCl (Cephalexin 250 Mg Capsule) 500 mg PO NOW ONE Stop: 10/01/24 01:22 Last Admin: 10/01/24 01:27 Dose: 500 mg Documented By: NED Phenazopyridine HCl (Phenazopyridine 100 Mg Tablet) 200 mg PO NOW ONE Stop: 10/01/24 01:22 Last Admin: 10/01/24 01:28 Dose: 200 mg Documented By: NED Vital Signs Vital signs: Vital Signs - 8 hr 10/01/24 00:29 10/01/24 02:01 Temperature 98.4 F Pulse Rate 84 72 Respiratory Rate 17 16 Blood Pressure 140/86 136/80 Pulse Oximetry 100 100 Oxygen Delivery Method Room Air Room Air Medical Decision Making Lab Data Lab results reviewed: Yes I reviewed the patient's lab results. Lab results narrative: Urinalysis with many bacteria and inflammatory cells. Urine culture requested. Labs: Lab Results 10/01/24 Range/Units 00:40 Urine RBC 0-1/hpf (0-5/HPF) Urine WBC 10-30/hpf H (0-5/HPF) Ur Squamous Epith Cells 1-5 /hpf (0-5/HPF) Urine Bacteria Many (>30) H (None) Ur Culture Indicated? Cult not indicated Vol Urine Centrifuged 10ml (spun) Urine Dip Bedside Urine Glucose Negative Bedside Urine Bilirubin - Negative Bedside Urine Ketone +/- 5 Urine Specific [place] 1.030 Bedside Urine Occult Blood - Negative Bedside Urine pH 5.5 Bedside Urine Protein + 30 Bedside Urine Urobilinogen - Negative Bedside Urine Nitrite - Negative Bedside Urine Leukocytes - Negative Esterase Point of care testing: Urine Dip Bedside Urine Glucose Negative Bedside Urine Bilirubin - Negative Bedside Urine Ketone +/- 5 Urine Specific [place] 1.030 Bedside Urine Occult Blood - Negative Bedside Urine pH 5.5 Bedside Urine Protein + 30 Bedside Urine Urobilinogen - Negative Bedside Urine Nitrite - Negative Bedside Urine Leukocytes - Negative Esterase MDM Narrative Medical decision making narrative: 44-year-old female has history of urine infection, no recent antibiotics, had dysuria and frequency. Afebrile, sirs screen negative, no CVA tenderness. Anterior abdominal exam benign. Often gets yeast infections after antibiotic courses, requests Diflucan if antibiotics prescribed. Urine suspicious for infection. Urine culture requested. Oral cephalexin given, prescription given for further course. Oral Pyridium given, prescription given for further course. Prescription also provided for Diflucan. Encouraged oral fluids. Discharged home. Discharge Plan Departure Patient Disposition: Home Clinical Impression: Urinary tract infection Activity Restrictions/Additional Instructions: History of urine infections, recent painful you in frequent urinations. No fever on triage. Urinalysis suspicious for infection. Urine culture requested. First dose oral cephalexin antibiotic given, prescription sent for further course. History of yeast vaginitis infections with exposure to systemic antibacterial antibiotics. Prescription for Diflucan sent to your pharmacy as well. Also consider use of Pyridium to take the sting away from urinary bladder until the antibiotics are more controlling infection. Take Tylenol as needed for fevers or pain. Drink plenty of fluids. Take medications above as directed. Recheck symptoms with your regular doctor if not improving in the next few days on therapy. Consider recheck urinalysis after course of treatment to document resolution of infection. Return earlier for any change worsening symptoms or any concerns prior. Prescriptions: New cephalexin 500 mg capsule 500 mg PO BID 7 Days Qty: 14 0RF fluconazole [Diflucan] 200 mg tablet 200 mg PO DAILY Qty: 2 0RF phenazopyridine [Pyridium] 200 mg tablet 200 mg PO TID PRN (Reason: pain) Qty: 10 0RF No Action Zyrtec 10 mg capsule 10 mg PO DAILY prenat.vits,yousif,rob-ozkw-ekpcr Tablet 1 tab PO DAILY adalimumab-atto 40 mg/0.8 mL syringe 40 mg SUBCUT Q2W naltrexone 50 mg tablet 50 mg PO DAILY fluconazole 150 mg tablet 150 mg PO Q3D PRN (Reason: yeast) Rx Instructions: may repeat second dose 72 hrs after first dose if symptoms persist Referrals: Miscellaneous,Doctor, MD [Primary Care Provider] - Stand Alone Forms: Patient Portal/API/Survey
[2024-10-01 02:01] VITALS: BP 136/80; PULSE 72; RESP 16; O2SAT 100
== END 2024-10-01 02:02 | disposition home or self-care (01) ==
PROVIDERS: Emergency Provider Emergency Medicine
DX: N39.0 Urinary tract infection, site not specified (principal)
CPT/HCPCS: 81003; 81015; 87077; 87086; 87186; 99283